=== PATIENT | female | born 1990 | race Two or more races ===

== ENCOUNTER 2016-09-30 17:43 | Emergency (ER) | payer MEDICARE, MEDICAID ==
[2016-09-30 17:50] VITALS: BP 119/84
[2016-09-30] MEDS ORDERED: NS 0.9% 1000 ML* 1,000 ML IV ONE (20:00)
[2016-09-30] MEDS ORDERED: Ondansetron INJ* 2 MG/ML VIAL IV ONE (20:00)
--- NOTE | 2016-09-30 20:24 | ED ---
Grant Roberts Karl, scribed for Dirk Colby MD on 09/30/16 at 1959 . GI/ HPI - HPI Summary HPI Summary: Pt is a 26 y/o female that presents to the ED c/o vomiting that began at 15:00 and has been constant since. Pt stated that she first vomited at 15:00 earlier today and has had 5 episodes of vomiting since with several episodes of hematemesis. Pt also reported a sore throat, nausea, and 8/10 epigastric abd pain that is worsened by vomiting. Pt stated that she last ate salad and chicken earlier this morning and her last episode of vomiting was 40 min ago while in the ED waiting room and there was blood in her vomit. Hx: ulcerative colitis. - History of Current Complaint Chief Complaint: EDGIBleed Time Seen by Provider: 09/30/16 19:55 Stated Complaint: VOMITING BLOOD/PAIN THROAT AND ABD Hx Obtained From: Patient Onset/Duration: Started Hours Ago, Atraumatic, Still Present Timing: Constant Severity: Moderate Current Severity: Moderate Pain Intensity: 8 - epigastric abd pain Location of Pain: Epigastric Associated Signs and Symptoms: Positive: Hematemesis, Nausea, Vomiting, Abdominal Pain Aggravating Factor(s): Nothing Alleviating Factor(s): Nothing - Allergy/Home Medications Allergies/Adverse Reactions: Allergies Allergy/AdvReac Type Severity Reaction Status Date / Time No Known Allergies Allergy Verified 09/30/16 17:50 PMH/Surg Hx/FS Hx/Imm Hx Endocrine/Hematology History: Denies: Hx Anticoagulant Therapy, Hx Blood Disorders, Hx Diabetes, Hx Thyroid Disease Cardiovascular History: Denies: Hx Hypertension, Hx Pacemaker/ICD Respiratory History: Reports: Hx Asthma - inhaler prn for exercise induced asthma Denies: Hx Chronic Bronchitis, Hx Chronic Obstructive Pulmonary Disease (COPD ), Hx Cystic Fibrosis, Hx Lung Cancer, Hx Pleural Effusion, Hx Pneumonia, Hx Pulmonary Edema, Hx Pulmonary Embolism, Hx Seasonal Allergies, Hx Sleep Apnea, Other Respiratory Problems/Disorders GI History: Reports: Hx Irritable Bowel, Other GI Disorders - colitis Denies: Hx Cirrhosis, Hx Crohn's Disease, Hx Diverticulosis, Hx Gall Bladder Disease, Hx Gastroesophageal Reflux Disease, Hx Gastrointestinal Bleed, Hx Hiatal Hernia, Hx Jaundice, Hx Obstructive Bowel, Hx Ileostomy, Hx Pyloric Stenosis, Hx Ulcer History: Reports: Hx Kidney Infection - Polycystic kidney, Hx Kidney Stones - Sep 2014 Denies: Hx Acute Renal Failure, Hx Benign Prostatic Hyperplasia, Hx Chronic Renal Failure, Hx Dialysis, Hx Renal Disease, Other Problems/Disorders Musculoskeletal History: Reports: Hx Back Problems Denies: Hx Arthritis, Hx Bursitis, Hx Congenital Bone Abnormalities, Hx Fibromyalgia, Hx Gout, Hx Orthopedic Injury, Hx Osteoporosis, Hx Scoliosis, Hx Tendonitis, Other Musculoskeletal History Sensory History: Denies: Hx Cataracts, Hx Contacts or Glasses, Hx Eye Injury, Hx Eye Prosthesis, Hx Glaucoma, Hx Legally Blind, Hx Macular Degeneration, Hx Vision Problem, Hx Deafness, Hx Hearing Aid, Hx Hearing Problem, Other Sensory Impairments Opthamlomology History: Denies: Hx Cataracts, Hx Contacts or Glasses, Hx Eye Injury, Hx Eye Prosthesis, Hx Glaucoma, Hx Legally Blind, Hx Macular Degeneration, Hx Vision Problem, Other Sensory Impairments Neurological History: Reports: Hx Headaches, Hx Migraine - 3 x week Denies: Hx Dementia, Hx Developmental Delay, Hx Seizures, Hx Spinal Cord Injury, Hx Transient Ischemic Attacks (TIA), Other Neuro Impairments/Disorders Psychiatric History: Reports: Hx Anxiety, Hx Depression, Hx Post Traumatic Stress Disorder, Hx Inpatient Treatment, Hx Community Mental Health Tx, Hx Suicide Attempt - overdose attempt at 12 Denies: Hx Attention Deficit Hyperactivity Disorder, Hx Eating Disorder, Hx Panic Disorder, Hx Schizophrenia, Hx Bipolar Disorder, Hx of Violent Episodes Against Others, Hx Substance Abuse, Other Psychiatric Issues/Disorders - Surgical History Surgery Procedure, Year, and Place: HISTORY OF ULCERATIVE COLITIS, IBS, KIDNEY STONES - Immunization History Date of Tetanus Vaccine: Unknown Date of Influenza Vaccine: None Infectious Disease History: No Infectious Disease History: Denies: Hx Clostridium Difficile, Hx Hepatitis, Hx Human Immunodeficiency Virus (HIV), Hx of Known/Suspected MRSA, Hx Shingles, Hx Tuberculosis, Traveled Outside the [place] in Last 30 Days - Family History Known Family History: Positive: Cardiac Disease, Diabetes - Social History Alcohol Use: None Substance Use Type: Reports: None Hx Tobacco Use: No Smoking Status (MU): Former Smoker Amount Used/How Often: 3/4 ppd Length of Time of Smoking/Using Tobacco: 6 YRS Review of Systems Constitutional: Negative Eyes: Negative Positive: Sore Throat Cardiovascular: Negative Respiratory: Negative Positive: Abdominal Pain, Vomiting - hematemesis, Nausea Genitourinary: Negative Musculoskeletal: Negative Skin: Negative Neurological: Negative Psychological: Normal All Other Systems Reviewed And Are Negative: Yes Physical Exam Triage Information Reviewed: Yes Vital Signs On Initial Exam: Initial Vitals Temp Pulse Resp BP Pulse Ox 98.9 F 92 16 119/84 99 09/30/16 17:46 09/30/16 17:46 09/30/16 17:46 09/30/16 17:46 09/30/16 17:46 Vital Signs Reviewed: Yes Appearance: Positive: Well-Appearing, No Pain Distress Skin: Positive: Warm Eyes: Positive: Normal ENT: Positive: Hearing grossly normal Neck: Positive: Supple Respiratory/Lung Sounds: Positive: Clear to Auscultation, Breath Sounds Present Cardiovascular: Positive: Normal Abdomen Description: Positive: Nontender, No Organomegaly, Soft Bowel Sounds: Positive: Present Musculoskeletal: Positive: Strength/ROM Intact Neurological: Positive: Sensory/Motor Intact, Alert, Oriented to Person Place, Time, Normal Gait Psychiatric: Positive: Normal Diagnostics - Vital Signs Vital Signs Temp Pulse Resp BP Pulse Ox 09/30/16 17:46 98.9 F 92 16 119/84 99 - Laboratory Pertinent Lab Values Are: WNL Result Diagrams: 09/30/16 20:45 09/30/16 20:35 Lab Statement: Any lab studies that have been ordered have been reviewed, and results considered in the medical decision making process. Re-Evaluation - Re-Evaluation First Eval Change: Improved GIGU Course/Dx - Diagnoses Provider Diagnoses: Nausea & vomiting, Abdominal pain Discharge - Discharge Plan Condition: Improved Disposition: HOME Patient Education Materials: Diet for Ulcers and Gastritis (ED), Acute Nausea and Vomiting (ED), Acute Abdominal Pain (ED) Referrals: Laith Mckinnon MD [Primary Care Provider] - Additional Instructions: Please follow up with your primary care provider. Return to the emergency department for changing or worsening symptoms. The documentation as recorded by the Grant julien Karl accurately reflects the service I personally performed and the decisions made by , Dirk Colby MD.
[2016-09-30 20:55] LABS: Hematocrit 39 % (35-47); Hemoglobin 12.2 g/dl (12.0-16.0); Mean Corpuscular HGB Conc 32 g/dl (31-36); Mean Corpuscular Hemoglobin 23 pg (27-31); Mean Platelet Volume 8 um3 (7.4-10.4); Red Blood Count 5.26 10^6/ul (4.0-5.4); Red Cell Distribution Width 15 % (10.5-15); White Blood Count 9.8 10^3/ul (3.5-10.8)
[2016-09-30 20:58] LABS: Comments Flag Yes
[2016-09-30 20:59] LABS: Mean Corpuscular Volume 73 fL (80-97)
[2016-09-30] MEDS ORDERED: Al Hydrox/Mg Hydrox/Simet LIQ* 30 ML UDC PO ONE (21:00)
[2016-09-30] MEDS ORDERED: Lidocaine 2% VISCOUS* 15 ML UDC PO ONE (21:00)
[2016-09-30 21:02] LABS: ALT 13 U/L (7-52); AST 19 U/L (13-39); Albumin 4.1 g/dL (3.2-5.2); Alkaline Phosphatase 76 U/L (34-104); Anion Gap 7 mmol/L (2-11); BUN/Creatinine Ratio 19.7 (8-20); Blood Urea Nitrogen 12 mg/dL (6-24); C Reactive Protein 8.84 mg/L (< 5.00); CO2 Carbon Dioxide 23 mmol/L (22-32); Calcium 9.2 mg/dL (8.6-10.3); Chloride 105 mmol/L (101-111); EGFR African American 150.2 (>60); EGFR Non-African American 116.8 (>60); Globulin 3.3 g/dL (2-4); Glucose 85 mg/dL (70-100); Lipase 12 U/L (11.0-82.0); Magnesium 1.9 mg/dL (1.9-2.7); Potassium 3.7 mmol/L (3.5-5.0); Sodium 135 mmol/L (133-145); Total Protein 7.4 g/dL (6.4-8.9)
[2016-09-30] MEDS ORDERED: Ondansetron ODT TAB* 4 MG PO ONE (22:19)
== END 2016-09-30 22:52 | disposition home or self-care (01) ==
LOC: ED 17:43
DX: R11.2 Nausea with vomiting, unspecified (principal); R10.9 Unspecified abdominal pain
CPT/HCPCS: 36415; 80053; 83605; 83690; 83735; 84702; 85025; 86140; 96374; 99282; A9270-GY; J2405

== ENCOUNTER 2016-12-30 11:39 | Emergency (ER) | payer MEDICARE, MEDICAID ==
[2016-12-30] MEDS ORDERED: NS 0.9% 1000 ML* 1,000 ML IV ONE (11:59)
[2016-12-30 12:20] LABS: Hematocrit 40 % (35-47); Hemoglobin 12.9 g/dl (12.0-16.0); Mean Corpuscular HGB Conc 32 g/dl (31-36); Mean Corpuscular Hemoglobin 23 pg (27-31); Mean Platelet Volume 9 um3 (7.4-10.4); Red Blood Count 5.54 10^6/ul (4.0-5.4); Red Cell Distribution Width 16 % (10.5-15); White Blood Count 9.4 10^3/ul (3.5-10.8)
[2016-12-30 12:22] LABS: Comments Flag Yes; Mean Corpuscular Volume 73 fL (80-97)
[2016-12-30 12:29] LABS: Urine Bacteria 1+ (Absent); Urine Bilirubin Negative (Negative); Urine Glucose Negative (Negative); Urine Nitrite Negative (Negative)
[2016-12-30 12:36] LABS: Albumin 4.4 g/dL (3.2-5.2); BUN/Creatinine Ratio 18.6 (8-20); C Reactive Protein 12.87 mg/L (< 5.00); Calcium 9.5 mg/dL (8.6-10.3); EGFR African American 128.1 (>60); EGFR Non-African American 99.6 (>60); Globulin 3.5 g/dL (2-4); Potassium 3.6 mmol/L (3.5-5.0); Total Bilirubin 0.4 mg/dL (0.2-1.0); Total Protein 7.9 g/dL (6.4-8.9)
--- NOTE | 2016-12-30 14:18 | RAD ---
Indication: Left adnexal pain. Real-time sonography of the pelvis was performed utilizing endovaginal technique. The uterus measures 9.4 x 4.5 x 4.8 cm. Endometrial echoes are unremarkable. No evidence of intrauterine gestational sac is noted. Endometrial echo measures 9 mm. Right ovary measures 4.1 x 2.1 x 1.7 cm. Left ovary measures 3.6 x 2.5 x 2.3 cm. Involuting cyst is noted in the left ovary measuring 2.1 x 1.3 x 2.0 cm. Doppler interrogation demonstrates flow in both ovaries. IMPRESSION: Involuting cyst left ovary measuring up to 2.1 cm.
[2016-12-30] MEDS ORDERED: Acetaminophen TAB* 325 MG PO ONE (14:26)
[2016-12-30] MEDS ORDERED: Ondansetron INJ* 2 MG/ML VIAL IV ONE (15:24)
[2016-12-30 15:36] VITALS: BP 112/79
--- NOTE | 2016-12-30 18:28 | ED ---
Grace Roberts Matthew, scribed for Damion Bowers MD on 12/30/16 at 1201 . Abdominal Pain/Female - HPI Summary HPI Summary: A 26 y/o female presents to the ED with constant left lower abdominal pain and back pain since 12/26/16. The patient has had the pain intermittent since 3 weeks ago. Associated symptoms include nausea and diarrhea. The patient denies vomiting, constipation, diarrhea. The patient has not had similar symptoms in the past. PMHX of ulcer colitis, depression, HTN, endometriosis, and IBS. Her GI physician is Dr. Edmond. FHx of CAD. Her LMP is 9 days late. - History of Current Complaint Chief Complaint: EDAbdPain Stated Complaint: LOWER LT ABD/FLANK PAIN/POSS PREG Time Seen by Provider: 12/30/16 11:47 Hx Last Menstrual Period: 9 days late Onset/Duration: Gradual Onset, Lasting Weeks, Still Present Timing: Constant Severity Initially: Moderate Severity Currently: Moderate Pain Intensity: 9 Pain Scale Used: 0-10 Numeric Location: Discrete At: LLQ Radiates: No Associated Signs and Symptoms: Positive: Back Pain, Nausea, Diarrhea, Other: - No dysuria. Negative: Constipation, Vomiting Allergies/Adverse Reactions: Allergies Allergy/AdvReac Type Severity Reaction Status Date / Time No Known Allergies Allergy Verified 09/30/16 17:50 PMH/Surg Hx/FS Hx/Imm Hx Endocrine/Hematology History: Denies: Hx Anticoagulant Therapy, Hx Blood Disorders, Hx Diabetes, Hx Thyroid Disease Cardiovascular History: Denies: Hx Hypertension, Hx Pacemaker/ICD Respiratory History: Reports: Hx Asthma - inhaler prn for exercise induced asthma Denies: Hx Chronic Bronchitis, Hx Chronic Obstructive Pulmonary Disease (COPD ), Hx Cystic Fibrosis, Hx Lung Cancer, Hx Pleural Effusion, Hx Pneumonia, Hx Pulmonary Edema, Hx Pulmonary Embolism, Hx Seasonal Allergies, Hx Sleep Apnea, Other Respiratory Problems/Disorders GI History: Reports: Hx Irritable Bowel, Other GI Disorders - colitis Denies: Hx Cirrhosis, Hx Crohn's Disease, Hx Diverticulosis, Hx Gall Bladder Disease, Hx Gastroesophageal Reflux Disease, Hx Gastrointestinal Bleed, Hx Hiatal Hernia, Hx Jaundice, Hx Obstructive Bowel, Hx Ileostomy, Hx Pyloric Stenosis, Hx Ulcer History: Reports: Hx Kidney Infection - Polycystic kidney, Hx Kidney Stones - Sep 2014 Denies: Hx Acute Renal Failure, Hx Benign Prostatic Hyperplasia, Hx Chronic Renal Failure, Hx Dialysis, Hx Renal Disease, Other Problems/Disorders Musculoskeletal History: Reports: Hx Back Problems Denies: Hx Arthritis, Hx Bursitis, Hx Congenital Bone Abnormalities, Hx Fibromyalgia, Hx Gout, Hx Orthopedic Injury, Hx Osteoporosis, Hx Scoliosis, Hx Tendonitis, Other Musculoskeletal History Sensory History: Denies: Hx Cataracts, Hx Contacts or Glasses, Hx Eye Injury, Hx Eye Prosthesis, Hx Glaucoma, Hx Legally Blind, Hx Macular Degeneration, Hx Vision Problem, Hx Deafness, Hx Hearing Aid, Hx Hearing Problem, Other Sensory Impairments Opthamlomology History: Denies: Hx Cataracts, Hx Contacts or Glasses, Hx Eye Injury, Hx Eye Prosthesis, Hx Glaucoma, Hx Legally Blind, Hx Macular Degeneration, Hx Vision Problem, Other Sensory Impairments Neurological History: Reports: Hx Headaches, Hx Migraine - 3 x week Denies: Hx Dementia, Hx Developmental Delay, Hx Seizures, Hx Spinal Cord Injury, Hx Transient Ischemic Attacks (TIA), Other Neuro Impairments/Disorders Psychiatric History: Reports: Hx Anxiety, Hx Depression, Hx Post Traumatic Stress Disorder, Hx Inpatient Treatment, Hx Community Mental Health Tx, Hx Suicide Attempt - overdose attempt at 12 Denies: Hx Attention Deficit Hyperactivity Disorder, Hx Eating Disorder, Hx Panic Disorder, Hx Schizophrenia, Hx Bipolar Disorder, Hx of Violent Episodes Against Others, Hx Substance Abuse, Other Psychiatric Issues/Disorders - Surgical History Surgery Procedure, Year, and Place: HISTORY OF ULCERATIVE COLITIS, IBS, KIDNEY STONES - Immunization History Date of Tetanus Vaccine: Unknown Date of Influenza Vaccine: None Infectious Disease History: Denies: Hx Clostridium Difficile, Hx Hepatitis, Hx Human Immunodeficiency Virus (HIV), Hx of Known/Suspected MRSA, Hx Shingles, Hx Tuberculosis, Traveled Outside the [place] in Last 30 Days - Family History Known Family History: Positive: Cardiac Disease, Diabetes - Social History Alcohol Use: None Substance Use Type: Reports: None Hx Tobacco Use: No Smoking Status (MU): Former Smoker Amount Used/How Often: 3/4 ppd Length of Time of Smoking/Using Tobacco: 6 YRS Review of Systems Constitutional: Negative Eyes: Negative ENT: Negative Cardiovascular: Negative Respiratory: Negative Positive: Abdominal Pain - LLQ, Diarrhea, Nausea. Negative: Vomiting Positive: Myalgia - Left sided back pain Skin: Negative Neurological: Negative Psychological: Normal All Other Systems Reviewed And Are Negative: Yes Physical Exam - Summary Physical Exam Summary: VITAL SIGNS: Reviewed. GENERAL: Patient is an obese female with mild distress secondary to pain in the LLQ. Patient is not in any acute respiratory distress. HEAD AND FACE: Normocephalic and atraumatic. EYES: PERRLA, EOMI x 2, No injected conjunctiva. EARS: Hearing grossly intact. Ear canals and tympanic membranes are WNL. MOUTH: Oropharynx within normal limits. NECK: Supple, trachea is midline, no adenopathy, no JVD. CHEST: Symmetric, no tenderness at palpation LUNGS: Clear to auscultation bilaterally. No wheezing or crackles. CVS: RRR,, S1 and S2 present, no murmurs or gallops appreciated. ABDOMEN: Soft, positive tender in the LLQ> No signs of distention. Positive bowel sounds. No rebound no guarding, and no masses palpated. No abdominal bruit or pulsations. EXTREMITIES: FROM in all major joints, no edema, no cyanosis or clubbing. NEURO: Alert and oriented x 3. No acute neurological deficits. Speech is normal. SKIN: Dry and warm Triage Information Reviewed: Yes Vital Signs On Initial Exam: Initial Vitals Temp Pulse Resp BP Pulse Ox 96.9 F 78 20 130/79 100 12/30/16 11:41 12/30/16 11:41 12/30/16 11:41 12/30/16 11:41 12/30/16 11:41 Vital Signs Reviewed: Yes - Kelly Coma Scale Coma Scale Total: 15 Diagnostics - Vital Signs Vital Signs Temp Pulse Resp BP Pulse Ox 12/30/16 11:41 96.9 F 78 20 130/79 100 - Laboratory Result Diagrams: 12/30/16 12:05 12/30/16 12:05 Lab Statement: Any lab studies that have been ordered have been reviewed, and results considered in the medical decision making process. - Ultrasound No standard instances Ultrasound Interpretation: Positive (See Comments) - IMPRESSION: Involuting cyst left ovary measuring up to 2.1 cm. Ultrasound Interpretation Completed By: Radiologist Abdominal Pain Fem Course/Dx - Course Course Of Treatment: A 26 y/o female presents to the ED with constant left lower abdominal pain and back pain since 12/26/16. The patient has had the pain intermittent since 3 weeks ago. Associated symptoms include nausea and diarrhea. The patient denies vomiting, constipation, diarrhea. The patient has not had similar symptoms in the past. PMHX of ulcer colitis, depression, HTN, endometriosis, and IBS. Her GI physician is Dr. Edmond. FHx of CAD. Her LMP is 9 days late. Blood work WNL except glucose of 101, C-reactive protein of 12. Urinalysis is contaminated and unable to tell if the patient has a UTI therefore we will send for urine cultures. Trans vaginal US shows involuting cyst left ovary measuring up to 2.1 cm. In the ED course, the patient was given IV fluids and Tylenol for the pain. The patient symptoms improved with Tylenol therefore I dont believe the patient is dealing with ulcer colitis or IBS flare. At this point, I cannot r/o an ectopic . I did discussed the case with Dr. Stewart from [facility] and recommends the patient follow-up at his office on Tuesday. I will be giving the patient a slip for a repeat beta HCG on Tuesday. I also did not perform an RH since the patient does not have vaginal bleeding or discharge. The patient will be discharge home to follow-up with Dr. Stewart. She was instructed to return to the ED if the symptoms worsen. If she develops increase in pain, vaginal bleeding, abdominal cramping, nausea and vomiting she should return to the ED immediately. Given an order for repear BHCG quantitative on Tuesday. - Diagnoses Differential Diagnosis: Positive: Constipation, Diverticulitis, Ovarian Cyst, Pancreatitis, Urinary Tract Infection Provider Diagnoses: Abdominal pain, - Provider Notifications Discussed Care Of Patient With: Dr. Stewart ([facility]) at 15:04 -- Notified of patient's history. Discharge - Discharge Plan Condition: Stable Disposition: HOME Meds/Orders/Equipment: BHCG Quantitative with Reflex [CHEM] Time Frame: 01/02/17, Facility: [facility], Location: LAB Patient Education Materials: Abdominal Pain in (ED) Referrals: Fady Stewart MD [Medical Doctor] - 01/03/17 Laith Mckinnon MD [Primary Care Provider] - Additional Instructions: Please follow-up with your primary care physician and Dr. Stewart on Tuesday () The documentation as recorded by the Grace julien Matthew accurately reflects the service I personally performed and the decisions made by me, Damion Bowers MD.
== END 2016-12-30 15:54 | disposition home or self-care (01) ==
LOC: ED 11:39
DX: O26.899 Other specified pregnancy related conditions, unspecified trimester (principal); R10.32 Left lower quadrant pain; O99.210 Obesity complicating pregnancy, unspecified trimester; Z87.891 Personal history of nicotine dependence; J45.990 Exercise induced bronchospasm; K58.9 Irritable bowel syndrome, unspecified
CPT/HCPCS: 36415; 76817; 80053; 81003; 81015; 82150; 83605; 83690; 84702; 85025; 86140; 87086; 96360; 96374; 99283; A9270-GY; J2405

== ENCOUNTER 2017-01-30 16:17 | Emergency (ER) | payer MEDICARE, MEDICAID ==
[2017-01-30] MEDS ORDERED: NS 0.9% 1000 ML* 2,000 ML IV ONE (17:10)
[2017-01-30] MEDS ORDERED: Ondansetron INJ* 2 MG/ML VIAL IV ONE (17:10)
[2017-01-30 17:51] LABS: Hematocrit 42 % (35-47); Hemoglobin 13.9 g/dl (12.0-16.0); Mean Corpuscular HGB Conc 33 g/dl (31-36); Mean Corpuscular Hemoglobin 24 pg (27-31); Mean Platelet Volume 9 um3 (7.4-10.4); Red Blood Count 5.71 10^6/ul (4.0-5.4); Red Cell Distribution Width 17 % (10.5-15); White Blood Count 10.7 10^3/ul (3.5-10.8)
[2017-01-30 17:54] LABS: Comments Flag Yes
[2017-01-30 17:55] LABS: Mean Corpuscular Volume 74 fL (80-97)
[2017-01-30 17:59] LABS: Urine Bacteria 1+ (Absent); Urine Bilirubin Negative (Negative); Urine Glucose Negative (Negative); Urine Nitrite Negative (Negative)
[2017-01-30 18:06] LABS: Albumin 4.3 g/dL (3.2-5.2); BUN/Creatinine Ratio 16.1 (8-20); Calcium 9.6 mg/dL (8.6-10.3); EGFR African American 165.8 (>60); EGFR Non-African American 128.9 (>60); Globulin 3.5 g/dL (2-4); Potassium 3.4 mmol/L (3.5-5.0); Total Bilirubin 0.6 mg/dL (0.2-1.0); Total Protein 7.8 g/dL (6.4-8.9)
[2017-01-30] MEDS ORDERED: Metoclopramide IV* 5 MG/ML 2 ML VIAL IV ONE (18:54)
[2017-01-30] MEDS ORDERED: HYDROmorphone* 1 MG/ML 1 ML SYR IV ONE (18:54)
[2017-01-30 20:30] VITALS: BP 106/61
--- NOTE | 2017-01-30 21:03 | ED ---
Chu Roberts Michael, scribed for Cornelio Hernandez MD on 01/30/17 at 1642 . - HPI Summary HPI Summary: 26 y/o female comes to the ED presenting with n/v that started a week and a half ago. The pt reports that the n/v has worsened within the last 4 days, and that she has a hx of hyperemesis during . Currently she is a gestational age of 8 weeks. Her LNMP was on 11/22/16, and her due date is . The pt saw Dr. Stewart 2 days ago and was started on vitamin B6 and Zofran, which has not alleviated the n/v. She also had a US at Dr. Stewart's office, and it was benign. The pt also c/o decreased appetite, increased blood in her stool from baseline, and sharp abd pain that started 2 weeks ago and has worsened since yesterday. The pain is located in the bilater LQ with worsening pain on the right side. She denies vaginal bleeding and dysuria. The pt PMHx is significant for Ulcerative colitis and IBS. - History of Current Complaint Chief Complaint: EDAbdPain Stated Complaint: 8 WKS PREG/ABD PAIN/BLOODY STOOL Time Seen by Provider: 01/30/17 16:41 Hx Obtained From: Patient, Medical Records Chief Complaint: Pain, Other: - n/v Onset/Duration: Started Weeks Ago, Still Present, Worse Since - 4 days ago Timing: Intermittent Severity: Mild Current Severity: Moderate Pain Intensity: 8 Location of Pain: Left Side - RLQ, Right Side - RLQ Character: Sharp Aggravating Factors: Nothing Alleviating Factors: Nothing Associated Signs and Symptoms: Positive: Appetite - decreased appetite, Nausea, Vomiting, Other: - blood in stool. abd pain. - Assessment SAB: 1 IEA: 2 - Additional Pertinent History Maternal Blood Type and Rh: A Positive - Allergies/Home Medications Allergies/Adverse Reactions: Allergies Allergy/AdvReac Type Severity Reaction Status Date / Time No Known Allergies Allergy Verified 09/30/16 17:50 PMH/Surg Hx/FS Hx/Imm Hx Endocrine/Hematology History: Denies: Hx Anticoagulant Therapy, Hx Blood Disorders, Hx Diabetes, Hx Thyroid Disease Cardiovascular History: Denies: Hx Hypertension, Hx Pacemaker/ICD Respiratory History: Reports: Hx Asthma - inhaler prn for exercise induced asthma Denies: Hx Chronic Bronchitis, Hx Chronic Obstructive Pulmonary Disease (COPD ), Hx Cystic Fibrosis, Hx Lung Cancer, Hx Pleural Effusion, Hx Pneumonia, Hx Pulmonary Edema, Hx Pulmonary Embolism, Hx Seasonal Allergies, Hx Sleep Apnea, Other Respiratory Problems/Disorders GI History: Reports: Hx Irritable Bowel, Other GI Disorders - colitis Denies: Hx Cirrhosis, Hx Crohn's Disease, Hx Diverticulosis, Hx Gall Bladder Disease, Hx Gastroesophageal Reflux Disease, Hx Gastrointestinal Bleed, Hx Hiatal Hernia, Hx Jaundice, Hx Obstructive Bowel, Hx Ileostomy, Hx Pyloric Stenosis, Hx Ulcer History: Reports: Hx Kidney Infection - Polycystic kidney, Hx Kidney Stones - Sep 2014 Denies: Hx Acute Renal Failure, Hx Benign Prostatic Hyperplasia, Hx Chronic Renal Failure, Hx Dialysis, Hx Renal Disease, Other Problems/Disorders Musculoskeletal History: Reports: Hx Back Problems Denies: Hx Arthritis, Hx Bursitis, Hx Congenital Bone Abnormalities, Hx Fibromyalgia, Hx Gout, Hx Orthopedic Injury, Hx Osteoporosis, Hx Scoliosis, Hx Tendonitis, Other Musculoskeletal History Sensory History: Denies: Hx Cataracts, Hx Contacts or Glasses, Hx Eye Injury, Hx Eye Prosthesis, Hx Glaucoma, Hx Legally Blind, Hx Macular Degeneration, Hx Vision Problem, Hx Deafness, Hx Hearing Aid, Hx Hearing Problem, Other Sensory Impairments Opthamlomology History: Denies: Hx Cataracts, Hx Contacts or Glasses, Hx Eye Injury, Hx Eye Prosthesis, Hx Glaucoma, Hx Legally Blind, Hx Macular Degeneration, Hx Vision Problem, Other Sensory Impairments Neurological History: Reports: Hx Headaches, Hx Migraine - 3 x week Denies: Hx Dementia, Hx Developmental Delay, Hx Seizures, Hx Spinal Cord Injury, Hx Transient Ischemic Attacks (TIA), Other Neuro Impairments/Disorders Psychiatric History: Reports: Hx Anxiety, Hx Depression, Hx Post Traumatic Stress Disorder, Hx Inpatient Treatment, Hx Community Mental Health Tx, Hx Suicide Attempt - overdose attempt at 12 Denies: Hx Attention Deficit Hyperactivity Disorder, Hx Eating Disorder, Hx Panic Disorder, Hx Schizophrenia, Hx Bipolar Disorder, Hx of Violent Episodes Against Others, Hx Substance Abuse, Other Psychiatric Issues/Disorders - Surgical History Surgery Procedure, Year, and Place: HISTORY OF ULCERATIVE COLITIS, IBS, KIDNEY STONES - Immunization History Date of Tetanus Vaccine: Unknown Date of Influenza Vaccine: None Infectious Disease History: No Infectious Disease History: Denies: Hx Clostridium Difficile, Hx Hepatitis, Hx Human Immunodeficiency Virus (HIV), Hx of Known/Suspected MRSA, Hx Shingles, Hx Tuberculosis, Traveled Outside the [place] in Last 30 Days - Family History Known Family History: Positive: Cardiac Disease, Diabetes - Social History Occupation: Unemployed Lives: Alone Alcohol Use: None Substance Use Type: Reports: None Hx Tobacco Use: No Smoking Status (MU): Former Smoker Amount Used/How Often: 3/4 ppd Length of Time of Smoking/Using Tobacco: 6 YRS Review of Systems Negative: Fever Positive: Abdominal Pain, Vomiting, Nausea, Other - blood in stool. decreased appetite. Positive: other - no vaginal bleeding. Negative: dysuria All Other Systems Reviewed And Are Negative: Yes Physical Exam - Physical Exam Triage Information Reviewed: Yes Vital Signs Reviewed: Yes Appearance: Positive: Well-Appearing, No Pain Distress, Obese Skin: Positive: Warm, Skin Color Reflects Adequate Perfusion, Dry Head/Face: Positive: Normal Head/Face Inspection Eyes: Positive: Normal ENT: Positive: Normal ENT inspection Neck: Positive: Supple, Nontender Respiratory/Lung Sounds: Positive: Clear to Auscultation, Breath Sounds Present Cardiovascular: Positive: RRR Abdomen Description: Positive: Nontender, Soft Bowel Sounds: Positive: Present Neurological: Positive: Normal Psychiatric: Positive: Affect/Mood Appropriate Diagnostics - Vital Signs Vital Signs Temp Pulse Resp BP Pulse Ox 01/30/17 16:30 97.3 F 91 15 116/88 100 01/30/17 16:26 97.2 F 92 16 116/88 100 - Laboratory Lab Results: Lab Results 01/30/17 01/30/17 01/30/17 Range/Units 17:40 17:40 17:40 WBC 10.7 (3.5-10.8) 10^3/ul RBC 5.71 H (4.0-5.4) 10^6/ul Hgb 13.9 (12.0-16.0) g/dl Hct 42 (35-47) % MCV 74 L (80-97) fL MCH 24 L (27-31) pg MCHC 33 (31-36) g/dl RDW 17 H (10.5-15) % Plt Count 252 (150-450) 10^3/ul MPV 9 (7.4-10.4) um3 Neut % (Auto) 71.9 (38-83) % Lymph % (Auto) 20.6 L (25-47) % [place] % (Auto) 6.8 (1-9) % Eos % (Auto) 0.4 (0-6) % Baso % (Auto) 0.3 (0-2) % Absolute Neuts (auto) 7.7 (1.5-7.7) 10^3/ul Absolute Lymphs (auto) 2.2 (1.0-4.8) 10^3/ul Absolute Monos (auto) 0.7 (0-0.8) 10^3/ul Absolute Eos (auto) 0 (0-0.6) 10^3/ul Absolute Basos (auto) 0 (0-0.2) 10^3/ul Absolute Nucleated RBC 0.01 10^3/ul Nucleated RBC % 0.1 Sodium (133-145) mmol/L Potassium (3.5-5.0) mmol/L Chloride (101-111) mmol/L Carbon Dioxide (22-32) mmol/L Anion Gap (2-11) mmol/L BUN (6-24) mg/dL Creatinine (0.51-0.95) mg/dL Est GFR ( Amer) (>60) Est GFR (Non-Af Amer) (>60) BUN/Creatinine Ratio (8-20) Glucose (70-100) mg/dL Lactic Acid 1.0 (0.5-2.0) mmol/L Calcium (8.6-10.3) mg/dL Total Bilirubin (0.2-1.0) mg/dL AST (13-39) U/L ALT (7-52) U/L Alkaline Phosphatase (34-104) U/L Total Protein (6.4-8.9) g/dL Albumin (3.2-5.2) g/dL Globulin (2-4) g/dL Albumin/Globulin Ratio (1-3) Urine Color Annabelle Urine Appearance Cloudy Urine pH 6.0 (5-9) Ur Specific [place] 1.024 (1.010-1.030) Urine Protein 1+(30 mg/dl) H (Negative) Urine Ketones 2+ H (Negative) Urine Blood Negative (Negative) Urine Nitrate Negative (Negative) Urine Bilirubin Negative (Negative) Urine Urobilinogen Positive H (Negative) Ur Leukocyte Esterase 1+ H (Negative) Urine WBC (Auto) 1+(6-10/hpf) H (Absent) Urine RBC (Auto) 1+(3-5/hpf) H (Absent) Ur Squamous Epith Cells Present H (Absent) Urine Bacteria 1+ H (Absent) Urine Glucose Negative (Negative) 01/30/17 Range/Units 17:40 WBC (3.5-10.8) 10^3/ul RBC (4.0-5.4) 10^6/ul Hgb (12.0-16.0) g/dl Hct (35-47) % MCV (80-97) fL MCH (27-31) pg MCHC (31-36) g/dl RDW (10.5-15) % Plt Count (150-450) 10^3/ul MPV (7.4-10.4) um3 Neut % (Auto) (38-83) % Lymph % (Auto) (25-47) % [place] % (Auto) (1-9) % Eos % (Auto) (0-6) % Baso % (Auto) (0-2) % Absolute Neuts (auto) (1.5-7.7) 10^3/ul Absolute Lymphs (auto) (1.0-4.8) 10^3/ul Absolute Monos (auto) (0-0.8) 10^3/ul Absolute Eos (auto) (0-0.6) 10^3/ul Absolute Basos (auto) (0-0.2) 10^3/ul Absolute Nucleated RBC 10^3/ul Nucleated RBC % Sodium 133 (133-145) mmol/L Potassium 3.4 L (3.5-5.0) mmol/L Chloride 101 (101-111) mmol/L Carbon Dioxide 22 (22-32) mmol/L Anion Gap 10 (2-11) mmol/L BUN 9 (6-24) mg/dL Creatinine 0.56 (0.51-0.95) mg/dL Est GFR ( Amer) 165.8 (>60) Est GFR (Non-Af Amer) 128.9 (>60) BUN/Creatinine Ratio 16.1 (8-20) Glucose 86 (70-100) mg/dL Lactic Acid (0.5-2.0) mmol/L Calcium 9.6 (8.6-10.3) mg/dL Total Bilirubin 0.60 (0.2-1.0) mg/dL AST 78 H (13-39) U/L ALT 76 H (7-52) U/L Alkaline Phosphatase 82 (34-104) U/L Total Protein 7.8 (6.4-8.9) g/dL Albumin 4.3 (3.2-5.2) g/dL Globulin 3.5 (2-4) g/dL Albumin/Globulin Ratio 1.2 (1-3) Urine Color Urine Appearance Urine pH (5-9) Ur Specific [place] (1.010-1.030) Urine Protein (Negative) Urine Ketones (Negative) Urine Blood (Negative) Urine Nitrate (Negative) Urine Bilirubin (Negative) Urine Urobilinogen (Negative) Ur Leukocyte Esterase (Negative) Urine WBC (Auto) (Absent) Urine RBC (Auto) (Absent) Ur Squamous Epith Cells (Absent) Urine Bacteria (Absent) Urine Glucose (Negative) Result Diagrams: 01/30/17 17:40 01/30/17 17:40 Lab Statement: Any lab studies that have been ordered have been reviewed, and results considered in the medical decision making process. Course/Dx - Course Course Of Treatment: Ms. Nelson presented with the C/O 'Hyperemesis' which she had with her first and a possible flair up of her ulderative colitis. She has been vomiting nonstop for 4 days and for the last 2 she has had abdominal pain that's constant but crampy. She passed a bloody BM today. Her labs were OK here aside from an unexplained mild increase in transaminases. She is too early for HELLP. I hydrated her here and treated her nausea and she felt better I discussed the situation with Dr. Andrea and he advised holding off on treating the UC at this time but he will follow her up. Her rectal exam was unremarkable. - Diagnoses Provider Diagnoses: Hyperemesis gravidarum, Ulcerative colitis Discharge - Discharge Plan Condition: Stable Disposition: HOME Patient Education Materials: Ulcerative Colitis (ED), Hyperemesis Gravidarum ( ED) Referrals: Jay Andrea MD [Medical Doctor] - Fady Stewart MD [Medical Doctor] - Additional Instructions: Please follow up with Dr. Andrea (Gastro) and Dr. Stewart (OBGYN) within the next 2 days. Also, keep taking medications as prescribed. The documentation as recorded by the Chu julien Michael accurately reflects the service I personally performed and the decisions made by me, Cornelio Hernandez MD.
== END 2017-01-30 20:30 | disposition home or self-care (01) ==
LOC: ED 16:17
DX: O21.0 Mild hyperemesis gravidarum (principal); R10.84 Generalized abdominal pain; Z87.891 Personal history of nicotine dependence; Z3A.08 8 weeks gestation of pregnancy; K51.90 Ulcerative colitis, unspecified, without complications
CPT/HCPCS: 36415; 80053; 81003; 81015; 83605; 85025; 87086; 96374; 96375; 99282; J1170; J2405

== ENCOUNTER 2017-03-02 09:43 | Emergency (ER) | payer MEDICARE, MEDICAID ==
[2017-03-02] MEDS ORDERED: Metoclopramide IV* 5 MG/ML 2 ML VIAL IV ONE ×2 (11:44→13:04)
[2017-03-02] MEDS ORDERED: Ondansetron INJ* 2 MG/ML VIAL IV ONE (11:48)
[2017-03-02] MEDS ORDERED: NS 0.9% 1000 ML* 2,000 ML IV ONE (11:59)
[2017-03-02 12:09] LABS: Hematocrit 38 % (35-47); Hemoglobin 12.4 g/dl (12.0-16.0); Mean Corpuscular HGB Conc 33 g/dl (31-36); Mean Corpuscular Hemoglobin 24 pg (27-31); Mean Platelet Volume 8 um3 (7.4-10.4); Red Blood Count 5.12 10^6/ul (4.0-5.4); Red Cell Distribution Width 17 % (10.5-15)
[2017-03-02 12:12] LABS: Comments Flag Yes; Mean Corpuscular Volume 74 fL (80-97)
[2017-03-02 12:24] LABS: Albumin 3.8 g/dL (3.2-5.2); BUN/Creatinine Ratio 16.3 (8-20); C Reactive Protein 34.31 mg/L (< 5.00); Calcium 9.1 mg/dL (8.6-10.3); EGFR African American 224.9 (>60); EGFR Non-African American 174.8 (>60); Globulin 3.5 g/dL (2-4); Potassium 3.5 mmol/L (3.5-5.0); Total Bilirubin 0.9 mg/dL (0.2-1.0); Total Protein 7.3 g/dL (6.4-8.9)
[2017-03-02] MEDS ORDERED: PROCHLORPERAZINE INJ 5 MG/ML 2 ML VIAL IV ONE (13:29)
[2017-03-02] MEDS ORDERED: Pantoprazole IV* 40 MG IV ONE (14:00)
[2017-03-02 14:21] LABS: Urine Bacteria Absent (Absent); Urine Bilirubin Negative (Negative); Urine Glucose Negative (Negative); Urine Nitrite Negative (Negative)
[2017-03-02 15:36] VITALS: BP 111/73
--- NOTE | 2017-03-02 18:25 | ED ---
Terence Roberts Aidan, scribed for Damino Bowers MD on 03/02/17 at 1316 . Complex/Multi-Sys Presentation - HPI Summary HPI Summary: 26 y/o female presents to the ED with a complaint of acute, frequent, moderate episodes of coffee ground emesis that began at 1200 yesterday. At 1500 yesterday , she got acute, constant, [id number] abdominal pain that has worsened since onset. She again had episodes of coffee ground emesis today beginning at 0200 this morning. Pt also mentions episodes of hematemesis today. Other associated symptoms include nausea, vaginal bleeding passing many clots, fever , chills, and episodes of diarrhea for the past 4 days. Pt is 13 weeks with her third . She has previously had 2 live births. Hx of colitis. - History Of Current Complaint Chief Complaint: EDAbdPain Time Seen by Provider: 03/02/17 11:51 Hx Obtained From: Patient Onset/Duration: Sudden Onset, Lasting Days, Still Present Timing: Intermittent, Lasting: Severity Currently: Moderate Severity Initially: Moderate Location: Pain At: - abdomen Character: Sharp Aggravating Factor(s): unknown Alleviating Factor(s): unknown Associated Signs And Symptoms: Positive: Nausea, Vomiting, Diarrhea, Abdominal Pain, Hematemesis, Fever, Other - vaginal bleeding, chills - Allergies/Home Medications Allergies/Adverse Reactions: Allergies Allergy/AdvReac Type Severity Reaction Status Date / Time No Known Allergies Allergy Verified 02/01/17 16:05 PMH/Surg Hx/FS Hx/Imm Hx Endocrine/Hematology History: Denies: Hx Anticoagulant Therapy, Hx Blood Disorders, Hx Diabetes, Hx Thyroid Disease Cardiovascular History: Denies: Hx Hypertension, Hx Pacemaker/ICD Respiratory History: Reports: Hx Asthma - inhaler prn for exercise induced asthma Denies: Hx Chronic Bronchitis, Hx Chronic Obstructive Pulmonary Disease (COPD ), Hx Cystic Fibrosis, Hx Lung Cancer, Hx Pleural Effusion, Hx Pneumonia, Hx Pulmonary Edema, Hx Pulmonary Embolism, Hx Seasonal Allergies, Hx Sleep Apnea, Other Respiratory Problems/Disorders GI History: Reports: Hx Irritable Bowel, Other GI Disorders - colitis Denies: Hx Cirrhosis, Hx Crohn's Disease, Hx Diverticulosis, Hx Gall Bladder Disease, Hx Gastroesophageal Reflux Disease, Hx Gastrointestinal Bleed, Hx Hiatal Hernia, Hx Jaundice, Hx Obstructive Bowel, Hx Ileostomy, Hx Pyloric Stenosis, Hx Ulcer History: Reports: Hx Kidney Infection - Polycystic kidney, Hx Kidney Stones - Sep 2014 Denies: Hx Acute Renal Failure, Hx Benign Prostatic Hyperplasia, Hx Chronic Renal Failure, Hx Dialysis, Hx Renal Disease, Other Problems/Disorders Musculoskeletal History: Reports: Hx Back Problems Denies: Hx Arthritis, Hx Bursitis, Hx Congenital Bone Abnormalities, Hx Fibromyalgia, Hx Gout, Hx Orthopedic Injury, Hx Osteoporosis, Hx Scoliosis, Hx Tendonitis, Other Musculoskeletal History Sensory History: Denies: Hx Cataracts, Hx Contacts or Glasses, Hx Eye Injury, Hx Eye Prosthesis, Hx Glaucoma, Hx Legally Blind, Hx Macular Degeneration, Hx Vision Problem, Hx Deafness, Hx Hearing Aid, Hx Hearing Problem, Other Sensory Impairments Opthamlomology History: Denies: Hx Cataracts, Hx Contacts or Glasses, Hx Eye Injury, Hx Eye Prosthesis, Hx Glaucoma, Hx Legally Blind, Hx Macular Degeneration, Hx Vision Problem, Other Sensory Impairments Neurological History: Reports: Hx Headaches, Hx Migraine - 3 x week Denies: Hx Dementia, Hx Developmental Delay, Hx Seizures, Hx Spinal Cord Injury, Hx Transient Ischemic Attacks (TIA), Other Neuro Impairments/Disorders Psychiatric History: Reports: Hx Anxiety, Hx Depression, Hx Post Traumatic Stress Disorder, Hx Inpatient Treatment, Hx Community Mental Health Tx, Hx Suicide Attempt - overdose attempt at 12 Denies: Hx Attention Deficit Hyperactivity Disorder, Hx Eating Disorder, Hx Panic Disorder, Hx Schizophrenia, Hx Bipolar Disorder, Hx of Violent Episodes Against Others, Hx Substance Abuse, Other Psychiatric Issues/Disorders - Surgical History Surgery Procedure, Year, and Place: HISTORY OF ULCERATIVE COLITIS, IBS, KIDNEY STONES - Immunization History Date of Tetanus Vaccine: Unknown Date of Influenza Vaccine: None Infectious Disease History: No Infectious Disease History: Denies: Hx Clostridium Difficile, Hx Hepatitis, Hx Human Immunodeficiency Virus (HIV), Hx of Known/Suspected MRSA, Hx Shingles, Hx Tuberculosis, Traveled Outside the [place] in Last 30 Days - Family History Known Family History: Positive: Cardiac Disease, Diabetes - Social History Occupation: Unemployed Lives: Alone Alcohol Use: None Substance Use Type: Reports: Marijuana Substance Use Comment - Amount & Last Used: stated smoked several weeks ago prior to knowledge of for nausea Hx Tobacco Use: No Smoking Status (MU): Former Smoker Amount Used/How Often: 3/4 ppd Length of Time of Smoking/Using Tobacco: 6 YRS Have You Smoked in the Last Year: No Review of Systems Positive: Fever, Chills. Negative: Fatigue, Skin Diaphoresis Eyes: Negative ENT: Negative Cardiovascular: Negative Respiratory: Negative Positive: Abdominal Pain, Vomiting, Diarrhea, Nausea, Other - hematamesis Genitourinary: Other - vaginal bleeding Negative: no symptoms reported, see HPI, burning, dysuria, discharge, frequency , flank pain, hematuria, incontinence, pain, urgency Musculoskeletal: Negative Skin: Negative Neurological: Negative Psychological: Normal All Other Systems Reviewed And Are Negative: Yes Physical Exam - Summary Physical Exam Summary: VITAL SIGNS: Reviewed. GENERAL: Patient is a well-developed, dehydrated FEMALE who is lying comfortable in the stretcher. Patient is not in any acute respiratory distress. HEAD AND FACE: No signs of trauma. No ecchymosis, hematomas or skull depressions. No sinus tenderness. EYES: PERRLA, EOMI x 2, No injected conjunctiva, no nystagmus. EARS: Hearing grossly intact. Ear canals and tympanic membranes are within normal limits. MOUTH: Oropharynx within normal limits. NECK: Supple, trachea is midline, no adenopathy, no JVD, no carotid bruit, no c- spine tenderness, neck with full ROM. CHEST: Symmetric, no tenderness at palpation LUNGS: Clear to auscultation bilaterally. No wheezing or crackles. CVS: Regular rate and rhythm, S1 and S2 present, no murmurs or gallops appreciated. ABDOMEN: Soft. Positive mild epigastric tenderness. No signs of distention. No rebound no guarding, and no masses palpated. Bowel sounds are normal. EXTREMITIES: FROM in all major joints, no edema, no cyanosis or clubbing. NEURO: Alert and oriented x 3. No acute neurological deficits. Speech is normal and follows commands. SKIN: Dry and warm No active vomiting. Triage Information Reviewed: Yes Vital Signs On Initial Exam: Initial Vitals Temp Pulse Resp BP Pulse Ox 98.7 F 90 17 120/76 98 03/02/17 10:30 03/02/17 10:30 03/02/17 10:30 03/02/17 10:30 03/02/17 10:30 Vital Signs Reviewed: Yes Diagnostics - Vital Signs Vital Signs Temp Pulse Resp BP Pulse Ox 03/02/17 10:34 98.7 F 84 17 120/76 98 03/02/17 10:30 98.7 F 90 17 120/76 98 - Laboratory Lab Results: Lab Results 03/02/17 03/02/17 03/02/17 Range/Units 11:55 11:55 11:55 WBC 10.0 (3.5-10.8) 10^3/ul RBC 5.12 (4.0-5.4) 10^6/ul Hgb 12.4 (12.0-16.0) g/dl Hct 38 (35-47) % MCV 74 L (80-97) fL MCH 24 L (27-31) pg MCHC 33 (31-36) g/dl RDW 17 H (10.5-15) % Plt Count 249 (150-450) 10^3/ul MPV 8 (7.4-10.4) um3 Neut % (Auto) 71.1 (38-83) % Lymph % (Auto) 20.7 L (25-47) % [place] % (Auto) 6.9 (1-9) % Eos % (Auto) 0.4 (0-6) % Baso % (Auto) 0.9 (0-2) % Absolute Neuts (auto) 7.1 (1.5-7.7) 10^3/ul Absolute Lymphs (auto) 2.1 (1.0-4.8) 10^3/ul Absolute Monos (auto) 0.7 (0-0.8) 10^3/ul Absolute Eos (auto) 0 (0-0.6) 10^3/ul Absolute Basos (auto) 0.1 (0-0.2) 10^3/ul Absolute Nucleated RBC 0 10^3/ul Nucleated RBC % 0 Sodium 135 (133-145) mmol/L Potassium 3.5 (3.5-5.0) mmol/L Chloride 103 (101-111) mmol/L Carbon Dioxide 22 (22-32) mmol/L Anion Gap 10 (2-11) mmol/L BUN 7 (6-24) mg/dL Creatinine 0.43 L (0.51-0.95) mg/dL Est GFR ( Amer) 224.9 (>60) Est GFR (Non-Af Amer) 174.8 (>60) BUN/Creatinine Ratio 16.3 (8-20) Glucose 90 (70-100) mg/dL Lactic Acid 1.1 (0.5-2.0) mmol/L Calcium 9.1 (8.6-10.3) mg/dL Total Bilirubin 0.90 (0.2-1.0) mg/dL AST 21 (13-39) U/L ALT 13 (7-52) U/L Alkaline Phosphatase 63 (34-104) U/L C-Reactive Protein 34.31 H (< 5.00) mg/L Total Protein 7.3 (6.4-8.9) g/dL Albumin 3.8 (3.2-5.2) g/dL Globulin 3.5 (2-4) g/dL Albumin/Globulin Ratio 1.1 (1-3) Beta HCG, Quant 74242.00 mIU/mL Result Diagrams: 03/02/17 11:55 03/02/17 11:55 Lab Statement: Any lab studies that have been ordered have been reviewed, and results considered in the medical decision making process. Complex Multi-Symp Course/Dx Assessment/Plan: 26 y/o female presents to the ED with a complaint of acute, frequent, moderate episodes of coffee ground emesis that began at 1200 yesterday. At 1500 yesterday, she got acute, constant, [id number] abdominal pain that has worsened since onset. She again had episodes of coffee ground emesis today beginning at 0200 this morning. Pt also mentions episodes of hematemesis today. Other associated symptoms include nausea, vaginal bleeding passing many clots, fever, chills, and episodes of diarrhea for the past 4 days. Pt is 13 weeks with her third . She has previously had 2 live births. Hx of colitis. In the ED course an IV access was obtained. Patient was placed in a surveillance monitor. Patient was started with 2 liters of IV fluids. Labs within normal limits except for CRP of 34.3. Urinalysis positive for urobilinogen, and contaminated. We will send for urine cultures. In the ED course she was given Zofran, Reglan and Compazine and her symptoms improved. I discussed the case with Dr. Knight (Patients OB) and he request to give protonix and discharge the patient home with f/u at this office tomorrow morning. I discussed the findings and plan with the patient as since she is feeling much better she will be discharged home with F/U of PMD and Dr. Lazo. I discussed all the findings and test results with the patient. Patient was instructed to return to the emergency room immediately if any of the symptoms return or worsens. They were explained the possibility of an early abdominal pathology which was not detected at this time despite the physical exam and testing. They understand and agree. Abdominal exam before discharge: Soft, NT. No signs of distention. BS present. No rebound no guarding , and no masses palpated. Patient is alert and oriented and hemodynamically stable. Patient is to follow up with primary care physician in the next 2 to 3 days. Patient agree and understands. - Diagnoses Differential Diagnoses/HQI/PQRI: Urinary Tract Infection, Other - Vomiting in , Hyperemesis gravidum Provider Diagnoses: Hyperemesis gravidarum - Physician Notifications Discussed Care Of Patient With: ainsley Time Discussed With Above Provider: 13:15 - Dr. Knight suggested giving the patient Protonix. The patient will be ready for discharge after. Discharge - Discharge Plan Condition: Stable Disposition: HOME Discharge Disposition Comment: Please follow up with your primary care provider within 3 days. Patient Education Materials: Hyperemesis Gravidarum (ED) Referrals: Mikey Reed, FREIGHT TALLIER [Primary Care Provider] - The documentation as recorded by the Terence julien Aidan accurately reflects the service I personally performed and the decisions made by me, Damion Bowers MD.
== END 2017-03-02 15:34 | disposition home or self-care (01) ==
LOC: ED 09:43
DX: O21.0 Mild hyperemesis gravidarum (principal); R19.7 Diarrhea, unspecified; R50.9 Fever, unspecified; Z87.891 Personal history of nicotine dependence; Z3A.13 13 weeks gestation of pregnancy
CPT/HCPCS: 36415; 80053; 81003; 81015; 83605; 84702; 85025; 86140; 87086; 96374; 96375; 99283; J0780; J2405

== ENCOUNTER 2017-05-27 14:40 | Emergency (ER) | payer MEDICARE, MEDICAID ==
[2017-05-27 15:41] VITALS: BP 105/71
[2017-05-27] MEDS ORDERED: Ondansetron INJ* 2 MG/ML VIAL IV ONE (16:38)
[2017-05-27 16:57] LABS: Hematocrit 33 % (35-47); Hemoglobin 10.7 g/dl (12.0-16.0); Mean Corpuscular HGB Conc 33 g/dl (31-36); Mean Corpuscular Hemoglobin 26 pg (27-31); Mean Corpuscular Volume 77 fL (80-97); Mean Platelet Volume 8 um3 (7.4-10.4); Red Cell Distribution Width 17 % (10.5-15); White Blood Count 7.9 10^3/ul (3.5-10.8)
[2017-05-27 17:12] LABS: Albumin 2.9 g/dL (3.2-5.2); BUN/Creatinine Ratio 14.3 (8-20); Calcium 8.3 mg/dL (8.6-10.3); EGFR African American 193.4 (>60); EGFR Non-African American 150.4 (>60); Globulin 3.1 g/dL (2-4); Potassium 3.8 mmol/L (3.5-5.0); Total Bilirubin 0.4 mg/dL (0.2-1.0)
--- NOTE | 2017-05-27 18:44 | ED ---
Rayne Roberts Alfonso, scribed for Cornelio Hernandez MD on 05/27/17 at 1610 . Abdominal Pain/Female - HPI Summary HPI Summary: This patient is a 26 year old F presenting to [facility] with a chief complaint of lower abdominal pain since 5 hours ago. The pain radiates to her vagina. The CC is described as cramping (started 4 hours ago). The patient rates the pain 7/10 in severity. Symptoms aggravated by nothing. Symptoms alleviated by nothing. Patient reports vomiting (hyperemesis), and nausea. Patient denies urinary symptoms, and vaginal bleeding. She states she is 26 weeks . - History of Current Complaint Chief Complaint: EDNauseaVomitDiarrh Stated Complaint: 26WKS PREG/ABD CRAMPING Time Seen by Provider: 05/27/17 15:31 Hx Obtained From: Patient Onset/Duration: Sudden Onset, Lasting Hours - 5, Still Present Timing: Constant Severity Initially: Moderate Severity Currently: Moderate Pain Intensity: 7 Pain Scale Used: 0-10 Numeric Location: Other - Lower Radiates: Yes Radiates to: Other - Vagina Character: Cramping Aggravating Factor(s): Nothing Alleviating Factor(s): Nothing Associated Signs and Symptoms: Positive: Other: - vomiting (hyperemesis), and nausea. Patient denies urinary symptoms, and vaginal bleeding. Allergies/Adverse Reactions: Allergies Allergy/AdvReac Type Severity Reaction Status Date / Time No Known Allergies Allergy Verified 05/27/17 15:41 PMH/Surg Hx/FS Hx/Imm Hx Endocrine/Hematology History: Denies: Hx Anticoagulant Therapy, Hx Blood Disorders, Hx Diabetes, Hx Thyroid Disease Cardiovascular History: Denies: Hx Hypertension, Hx Pacemaker/ICD Respiratory History: Reports: Hx Asthma - inhaler prn for exercise induced asthma Denies: Hx Chronic Bronchitis, Hx Chronic Obstructive Pulmonary Disease (COPD ), Hx Cystic Fibrosis, Hx Lung Cancer, Hx Pleural Effusion, Hx Pneumonia, Hx Pulmonary Edema, Hx Pulmonary Embolism, Hx Seasonal Allergies, Hx Sleep Apnea, Other Respiratory Problems/Disorders GI History: Reports: Hx Irritable Bowel, Other GI Disorders - colitis Denies: Hx Cirrhosis, Hx Crohn's Disease, Hx Diverticulosis, Hx Gall Bladder Disease, Hx Gastroesophageal Reflux Disease, Hx Gastrointestinal Bleed, Hx Hiatal Hernia, Hx Jaundice, Hx Obstructive Bowel, Hx Ileostomy, Hx Pyloric Stenosis, Hx Ulcer History: Reports: Hx Kidney Infection - Polycystic kidney, Hx Kidney Stones - Sep 2014 Denies: Hx Acute Renal Failure, Hx Benign Prostatic Hyperplasia, Hx Chronic Renal Failure, Hx Dialysis, Hx Renal Disease, Other Problems/Disorders Musculoskeletal History: Reports: Hx Back Problems Denies: Hx Arthritis, Hx Bursitis, Hx Congenital Bone Abnormalities, Hx Fibromyalgia, Hx Gout, Hx Orthopedic Injury, Hx Osteoporosis, Hx Scoliosis, Hx Tendonitis, Other Musculoskeletal History Sensory History: Denies: Hx Cataracts, Hx Contacts or Glasses, Hx Eye Injury, Hx Eye Prosthesis, Hx Glaucoma, Hx Legally Blind, Hx Macular Degeneration, Hx Vision Problem, Hx Deafness, Hx Hearing Aid, Hx Hearing Problem, Other Sensory Impairments Opthamlomology History: Denies: Hx Cataracts, Hx Contacts or Glasses, Hx Eye Injury, Hx Eye Prosthesis, Hx Glaucoma, Hx Legally Blind, Hx Macular Degeneration, Hx Vision Problem, Other Sensory Impairments Neurological History: Reports: Hx Headaches, Hx Migraine - 3 x week Denies: Hx Dementia, Hx Developmental Delay, Hx Seizures, Hx Spinal Cord Injury, Hx Transient Ischemic Attacks (TIA), Other Neuro Impairments/Disorders Psychiatric History: Reports: Hx Anxiety, Hx Depression, Hx Post Traumatic Stress Disorder, Hx Inpatient Treatment, Hx Community Mental Health Tx, Hx Suicide Attempt - overdose attempt at 12 Denies: Hx Attention Deficit Hyperactivity Disorder, Hx Eating Disorder, Hx Panic Disorder, Hx Schizophrenia, Hx Bipolar Disorder, Hx of Violent Episodes Against Others, Hx Substance Abuse, Other Psychiatric Issues/Disorders - Surgical History Surgery Procedure, Year, and Place: HISTORY OF ULCERATIVE COLITIS, IBS, KIDNEY STONES - Immunization History Date of Tetanus Vaccine: Unknown Date of Influenza Vaccine: None Infectious Disease History: No Infectious Disease History: Denies: Hx Clostridium Difficile, Hx Hepatitis, Hx Human Immunodeficiency Virus (HIV), Hx of Known/Suspected MRSA, Hx Shingles, Hx Tuberculosis, Traveled Outside the [place] in Last 30 Days - Family History Known Family History: Positive: Cardiac Disease, Diabetes - Social History Alcohol Use: None Substance Use Type: Reports: Marijuana Substance Use Comment - Amount & Last Used: stated smoked several weeks ago prior to knowledge of for nausea Hx Tobacco Use: No Smoking Status (MU): Former Smoker Amount Used/How Often: 3/4 ppd Length of Time of Smoking/Using Tobacco: 6 YRS Have You Smoked in the Last Year: No Review of Systems Positive: Abdominal Pain, Vomiting, Nausea Positive: no symptoms reported, other - Negative vaginal bleeding All Other Systems Reviewed And Are Negative: Yes Physical Exam Triage Information Reviewed: Yes Vital Signs On Initial Exam: Initial Vitals Temp Pulse Resp BP Pulse Ox 98.2 F 121 20 116/79 99 05/27/17 14:51 05/27/17 14:51 05/27/17 14:51 05/27/17 14:51 05/27/17 14:51 Vital Signs Reviewed: Yes Appearance: Positive: Well-Appearing, No Pain Distress Skin: Positive: Warm, Skin Color Reflects Adequate Perfusion, Dry Head/Face: Positive: Normal Head/Face Inspection Eyes: Positive: Normal ENT: Positive: Normal ENT inspection Neck: Positive: Supple, Nontender Respiratory/Lung Sounds: Positive: Clear to Auscultation, Breath Sounds Present Cardiovascular: Positive: RRR Abdomen Description: Positive: Nontender, Soft Bowel Sounds: Positive: Present Musculoskeletal: Positive: Normal Neurological: Positive: Normal, Sensory/Motor Intact, Alert, Oriented to Person Place, Time, CN Intact II-III Psychiatric: Positive: Affect/Mood Appropriate - [place] Coma Scale Coma Scale Total: 15 Diagnostics - Vital Signs Vital Signs Temp Pulse Resp BP Pulse Ox 05/27/17 15:34 98.0 F 89 16 105/71 98 05/27/17 14:51 98.2 F 121 20 116/79 99 - Laboratory Lab Results: Lab Results 05/27/17 05/27/17 Range/Units 16:48 16:48 WBC 7.9 (3.5-10.8) 10^3/ul RBC 4.20 (4.0-5.4) 10^6/ul Hgb 10.7 L (12.0-16.0) g/dl Hct 33 L (35-47) % MCV 77 L (80-97) fL MCH 26 L (27-31) pg MCHC 33 (31-36) g/dl RDW 17 H (10.5-15) % Plt Count 231 (150-450) 10^3/ul MPV 8 (7.4-10.4) um3 Neut % (Auto) 62.6 (38-83) % Lymph % (Auto) 28.6 (25-47) % [place] % (Auto) 7.8 (1-9) % Eos % (Auto) 0.4 (0-6) % Baso % (Auto) 0.6 (0-2) % Absolute Neuts (auto) 4.9 (1.5-7.7) 10^3/ul Absolute Lymphs (auto) 2.3 (1.0-4.8) 10^3/ul Absolute Monos (auto) 0.6 (0-0.8) 10^3/ul Absolute Eos (auto) 0 (0-0.6) 10^3/ul Absolute Basos (auto) 0 (0-0.2) 10^3/ul Absolute Nucleated RBC 0 10^3/ul Nucleated RBC % 0 Sodium 133 (133-145) mmol/L Potassium 3.8 (3.5-5.0) mmol/L Chloride 105 (101-111) mmol/L Carbon Dioxide 23 (22-32) mmol/L Anion Gap 5 (2-11) mmol/L BUN 7 (6-24) mg/dL Creatinine 0.49 L (0.51-0.95) mg/dL Est GFR ( Amer) 193.4 (>60) Est GFR (Non-Af Amer) 150.4 (>60) BUN/Creatinine Ratio 14.3 (8-20) Glucose 75 (70-100) mg/dL Calcium 8.3 L (8.6-10.3) mg/dL Total Bilirubin 0.40 (0.2-1.0) mg/dL AST 18 (13-39) U/L ALT 8 (7-52) U/L Alkaline Phosphatase 68 (34-104) U/L Total Protein 6.0 L (6.4-8.9) g/dL Albumin 2.9 L (3.2-5.2) g/dL Globulin 3.1 (2-4) g/dL Albumin/Globulin Ratio 0.9 L (1-3) Result Diagrams: 05/27/17 16:48 05/27/17 16:48 Lab Statement: Any lab studies that have been ordered have been reviewed, and results considered in the medical decision making process. Abdominal Pain Fem Course/Dx - Course Course Of Treatment: Ms. Nelson presented C/O nausea which she has had all of her but is worse today and she is feeling some cramping and is concerned that she might be going into labor. An IV was ordered to give her antiemetics while labs were checked with a concern for HELPP etc with abd pain and nausea in the third trimester. My intention was to send her up to L&D when I was sure she was medically stable. While waiting for a urine she became very angry and suddenly left. - Diagnoses Provider Diagnoses: Abdominal pain during in third trimester Discharge - Discharge Plan Condition: Stable Disposition: HOME Referrals: Laith Mckinnon MD [Primary Care Provider] - The documentation as recorded by the Rayne julien Alfonso accurately reflects the service I personally performed and the decisions made by me, Cornelio Hernandez MD.
== END 2017-05-27 18:31 | disposition home or self-care (01) ==
LOC: ED 14:40
DX: O26.892 Other specified pregnancy related conditions, second trimester (principal); R10.30 Lower abdominal pain, unspecified; Z3A.26 26 weeks gestation of pregnancy; Z87.891 Personal history of nicotine dependence
CPT/HCPCS: 36415; 80053; 85025; 99283

== ENCOUNTER 2017-07-13 08:46 | Emergency (ER) | payer MEDICARE, MEDICAID ==
[2017-07-13] MEDS ORDERED: Ondansetron INJ* 2 MG/ML VIAL IV ONE (09:02)
[2017-07-13] MEDS ORDERED: NS 0.9% 1000 ML* 1,000 ML IV ONE (09:02)
[2017-07-13 09:19] LABS: Hematocrit 30 % (35-47); Hemoglobin 10.1 g/dl (12.0-16.0); Mean Corpuscular HGB Conc 34 g/dl (31-36); Mean Corpuscular Hemoglobin 25 pg (27-31); Mean Corpuscular Volume 75 fL (80-97); Mean Platelet Volume 8 um3 (7.4-10.4); Red Blood Count 4.02 10^6/ul (4.0-5.4); Red Cell Distribution Width 16 % (10.5-15)
[2017-07-13 09:25] LABS: Urine Bacteria 1+ (Absent); Urine Bilirubin Negative (Negative); Urine Glucose Negative (Negative); Urine Nitrite Negative (Negative)
[2017-07-13 09:51] LABS: Albumin 2.9 g/dL (3.2-5.2); BUN/Creatinine Ratio 9.8 (8-20); C Reactive Protein 12.44 mg/L (< 5.00); Calcium 8.1 mg/dL (8.6-10.3); EGFR African American 183.4 (>60); EGFR Non-African American 142.6 (>60); Globulin 3.3 g/dL (2-4); Potassium 3.4 mmol/L (3.5-5.0); Total Bilirubin 0.2 mg/dL (0.2-1.0); Total Protein 6.2 g/dL (6.4-8.9)
--- NOTE | 2017-07-13 10:00 | RAD ---
HISTORY: Right upper quadrant pain COMPARISONS: August 14, 2016 TECHNIQUE: Multiple transverse and longitudinal ultrasound images were obtained of the right upper quadrant of the abdomen using grayscale and color Doppler imaging. FINDINGS: LIVER: The liver is normal in shape, size, contour, and echogenicity. There are no focal parenchymal masses. There is normal hepatopedal flow of the portal vein on Doppler imaging. BILIARY TREE: There is no intrahepatic or extrahepatic biliary dilatation. The common duct measures 0.3 cm. GALLBLADDER: The gallbladder is well-visualized. There is no cholelithiasis, gallbladder wall thickening or pericholecystic fluid. The technologist reports a questionable sonographic Martin sign. PANCREAS: The head of the pancreas is unremarkable. The tail of the pancreas is not well visualized secondary to overlying bowel gas. RIGHT KIDNEY: The right kidney is normal in shape, size, contour, and echogenicity. There is no hydronephrosis or nephrolithiasis. The right kidney measures 11 x 4.6 x 5.3 cm. cm. AORTA AND IVC: The aorta and IVC are unremarkable. FLUID: There are no pleural effusions. There is no free fluid within the hepatorenal recess. OTHER FINDINGS: None. IMPRESSION: QUESTIONABLE SONOGRAPHIC MARTIN SIGN. OTHERWISE UNREMARKABLE ULTRASOUND OF THE RIGHT UPPER QUADRANT.
[2017-07-13] MEDS ORDERED: Potassium Chlor TAB* 20 MEQ TAB.ER PO ONE (10:26)
[2017-07-13] MEDS ORDERED: Acetaminophen TAB* 325 MG PO ONE (10:27)
[2017-07-13 10:35] VITALS: BP 113/67
--- NOTE | 2017-07-14 16:22 | ED ---
Harsh Roberts Angela, scribed for Damion Bowers MD on 07/13/17 at 0908 . Abdominal Pain/Female - HPI Summary HPI Summary: This pt is a 27 y/o female, currently 32 weeks , presenting to [facility] c/o severe RUQ abd pain. Pt additionally c/o nausea and vomiting. She states having hyperemesis, vomiting 5 times a days. Pt states she is unable to keep much in due to her vomiting. Pt denies fever, chills. Her ObGyn is Dr. Stewart. Pt notes having "gallbladder issues" before. - History of Current Complaint Chief Complaint: EDAbdPain Stated Complaint: 32WKS PREG/RT ABD PAIN/SWELLING Time Seen by Provider: 07/13/17 08:56 Hx Obtained From: Patient Hx Last Menstrual Period: 9 days late ?: Yes - 32 weeks Onset/Duration: Lasting Hours, Still Present Timing: Hours Severity Currently: Severe Pain Intensity: 9 Pain Scale Used: 0-10 Numeric Location: Discrete At: RUQ Radiates: No Aggravating Factor(s): Nothing Alleviating Factor(s): Nothing Associated Signs and Symptoms: Positive: Nausea, Vomiting Allergies/Adverse Reactions: Allergies Allergy/AdvReac Type Severity Reaction Status Date / Time No Known Allergies Allergy Verified 07/13/17 08:51 PMH/Surg Hx/FS Hx/Imm Hx Endocrine/Hematology History: Denies: Hx Anticoagulant Therapy, Hx Blood Disorders, Hx Diabetes, Hx Thyroid Disease Cardiovascular History: Denies: Hx Hypertension, Hx Pacemaker/ICD Respiratory History: Reports: Hx Asthma - inhaler prn for exercise induced asthma Denies: Hx Chronic Bronchitis, Hx Chronic Obstructive Pulmonary Disease (COPD ), Hx Cystic Fibrosis, Hx Lung Cancer, Hx Pleural Effusion, Hx Pneumonia, Hx Pulmonary Edema, Hx Pulmonary Embolism, Hx Seasonal Allergies, Hx Sleep Apnea, Other Respiratory Problems/Disorders GI History: Reports: Hx Irritable Bowel, Other GI Disorders - colitis Denies: Hx Cirrhosis, Hx Crohn's Disease, Hx Diverticulosis, Hx Gall Bladder Disease, Hx Gastroesophageal Reflux Disease, Hx Gastrointestinal Bleed, Hx Hiatal Hernia, Hx Jaundice, Hx Obstructive Bowel, Hx Ileostomy, Hx Pyloric Stenosis, Hx Ulcer History: Reports: Hx Kidney Infection - Polycystic kidney, Hx Kidney Stones - Sep 2014 Denies: Hx Acute Renal Failure, Hx Benign Prostatic Hyperplasia, Hx Chronic Renal Failure, Hx Dialysis, Hx Renal Disease, Other Problems/Disorders Musculoskeletal History: Reports: Hx Back Problems Denies: Hx Arthritis, Hx Bursitis, Hx Congenital Bone Abnormalities, Hx Fibromyalgia, Hx Gout, Hx Orthopedic Injury, Hx Osteoporosis, Hx Scoliosis, Hx Tendonitis, Other Musculoskeletal History Sensory History: Denies: Hx Cataracts, Hx Contacts or Glasses, Hx Eye Injury, Hx Eye Prosthesis, Hx Glaucoma, Hx Legally Blind, Hx Macular Degeneration, Hx Vision Problem, Hx Deafness, Hx Hearing Aid, Hx Hearing Problem, Other Sensory Impairments Opthamlomology History: Denies: Hx Cataracts, Hx Contacts or Glasses, Hx Eye Injury, Hx Eye Prosthesis, Hx Glaucoma, Hx Legally Blind, Hx Macular Degeneration, Hx Vision Problem, Other Sensory Impairments Neurological History: Reports: Hx Headaches, Hx Migraine - 3 x week Denies: Hx Dementia, Hx Developmental Delay, Hx Seizures, Hx Spinal Cord Injury, Hx Transient Ischemic Attacks (TIA), Other Neuro Impairments/Disorders Psychiatric History: Reports: Hx Anxiety, Hx Depression, Hx Post Traumatic Stress Disorder, Hx Inpatient Treatment, Hx Community Mental Health Tx, Hx Suicide Attempt - overdose attempt at 12 Denies: Hx Attention Deficit Hyperactivity Disorder, Hx Eating Disorder, Hx Panic Disorder, Hx Schizophrenia, Hx Bipolar Disorder, Hx of Violent Episodes Against Others, Hx Substance Abuse, Other Psychiatric Issues/Disorders - Surgical History Surgery Procedure, Year, and Place: HISTORY OF ULCERATIVE COLITIS, IBS, KIDNEY STONES - Immunization History Date of Tetanus Vaccine: Unknown Date of Influenza Vaccine: None Infectious Disease History: No Infectious Disease History: Denies: Hx Clostridium Difficile, Hx Hepatitis, Hx Human Immunodeficiency Virus (HIV), Hx of Known/Suspected MRSA, Hx Shingles, Hx Tuberculosis, Traveled Outside the [place] in Last 30 Days - Family History Known Family History: Positive: Cardiac Disease, Diabetes - Social History Alcohol Use: None Substance Use Type: Reports: Marijuana Substance Use Comment - Amount & Last Used: stated smoked several weeks ago prior to knowledge of for nausea Hx Tobacco Use: No Smoking Status (MU): Former Smoker Amount Used/How Often: 3/4 ppd Length of Time of Smoking/Using Tobacco: 6 YRS Have You Smoked in the Last Year: No Review of Systems Negative: Fever, Chills Eyes: Negative ENT: Negative Cardiovascular: Negative Positive: Abdominal Pain, Vomiting, Nausea All Other Systems Reviewed And Are Negative: Yes Physical Exam - Summary Physical Exam Summary: VITAL SIGNS: Reviewed. GENERAL: Patient is a well-developed and nourished female who is lying comfortable in the stretcher. Patient is not in any acute respiratory distress. Pt is a little bit dehydrated. HEAD AND FACE: Normocephalic and atraumatic. EYES: PERRLA, EOMI x 2, No injected conjunctiva. EARS: Hearing grossly intact. Ear canals and tympanic membranes are WNL. MOUTH: Oropharynx within normal limits. NECK: Supple, trachea is midline, no adenopathy, no JVD. CHEST: Symmetric, no tenderness at palpation LUNGS: Clear to auscultation bilaterally. No wheezing or crackles. CVS: RRR, S1 and S2 present, no murmurs or gallops appreciated. ABDOMEN: Soft. Pt is gravid. There is RUQ tenderness. No signs of distention. Positive bowel sounds. No rebound no guarding, and no masses palpated. No abdominal bruit or pulsations. EXTREMITIES: FROM in all major joints, no edema, no cyanosis or clubbing. NEURO: Alert and oriented x 3. No acute neurological deficits. Speech is normal. SKIN: Dry and warm Triage Information Reviewed: Yes Vital Signs On Initial Exam: Initial Vitals Temp Pulse Resp BP Pulse Ox 97.0 F 107 20 117/81 99 07/13/17 08:49 07/13/17 08:49 07/13/17 08:49 07/13/17 08:49 07/13/17 08:49 Vital Signs Reviewed: Yes Diagnostics - Vital Signs Vital Signs Temp Pulse Resp BP Pulse Ox 07/13/17 08:49 97.0 F 107 20 117/81 99 - Laboratory Lab Results: Lab Results 07/13/17 07/13/17 07/13/17 Range/Units 09:09 09:09 09:09 WBC 7.0 (3.5-10.8) 10^3/ul RBC 4.02 (4.0-5.4) 10^6/ul Hgb 10.1 L (12.0-16.0) g/dl Hct 30 L (35-47) % MCV 75 L (80-97) fL MCH 25 L (27-31) pg MCHC 34 (31-36) g/dl RDW 16 H (10.5-15) % Plt Count 234 (150-450) 10^3/ul MPV 8 (7.4-10.4) um3 Neut % (Auto) 62.6 (38-83) % Lymph % (Auto) 28.8 (25-47) % [place] % (Auto) 7.1 (1-9) % Eos % (Auto) 1.0 (0-6) % Baso % (Auto) 0.5 (0-2) % Absolute Neuts (auto) 4.4 (1.5-7.7) 10^3/ul Absolute Lymphs (auto) 2.0 (1.0-4.8) 10^3/ul Absolute Monos (auto) 0.5 (0-0.8) 10^3/ul Absolute Eos (auto) 0.1 (0-0.6) 10^3/ul Absolute Basos (auto) 0 (0-0.2) 10^3/ul Absolute Nucleated RBC 0 10^3/ul Nucleated RBC % 0 Sodium 134 (133-145) mmol/L Potassium 3.4 L (3.5-5.0) mmol/L Chloride 107 (101-111) mmol/L Carbon Dioxide 19 L (22-32) mmol/L Anion Gap 8 (2-11) mmol/L BUN 5 L (6-24) mg/dL Creatinine 0.51 (0.51-0.95) mg/dL Est GFR ( Amer) 183.4 (>60) Est GFR (Non-Af Amer) 142.6 (>60) BUN/Creatinine Ratio 9.8 (8-20) Glucose 96 (70-100) mg/dL Calcium 8.1 L (8.6-10.3) mg/dL Total Bilirubin 0.20 (0.2-1.0) mg/dL AST 16 (13-39) U/L ALT 7 (7-52) U/L Alkaline Phosphatase 87 (34-104) U/L C-Reactive Protein 12.44 H (< 5.00) mg/L Total Protein 6.2 L (6.4-8.9) g/dL Albumin 2.9 L (3.2-5.2) g/dL Globulin 3.3 (2-4) g/dL Albumin/Globulin Ratio 0.9 L (1-3) Urine Color Colorless Urine Appearance Clear Urine pH 7.0 (5-9) Ur Specific [place] 1.002 L (1.010-1.030) Urine Protein Negative (Negative) Urine Ketones Negative (Negative) Urine Blood Negative (Negative) Urine Nitrate Negative (Negative) Urine Bilirubin Negative (Negative) Urine Urobilinogen Negative (Negative) Ur Leukocyte Esterase Trace H (Negative) Urine WBC (Auto) Trace(0-5/hpf) (Absent) Urine RBC (Auto) Trace(0-2/hpf) (Absent) Ur Squamous Epith Cells Present H (Absent) Urine Bacteria 1+ H (Absent) Urine Glucose Negative (Negative) Result Diagrams: 07/13/17 09:09 07/13/17 09:09 Lab Statement: Any lab studies that have been ordered have been reviewed, and results considered in the medical decision making process. - Ultrasound No standard instances Ultrasound Interpretation: No Acute Changes - Abdomen US IMPRESSION: Questionable sonographic middleton sign. Otherwise unremarkable ultrasound of the right upper quadrant. ED physician has reviewed this radiology report and agrees. Ultrasound Interpretation Completed By: Radiologist Abdominal Pain Fem Course/Dx - Course Course Of Treatment: This pt is a 27 y/o female, currently 32 weeks , presenting to [facility] c/o severe RUQ abd pain. Pt additionally c/o nausea and vomiting. She states having hyperemesis, vomiting 5 times a days. Pt states she is unable to keep much in due to her vomiting. Pt denies fever, chills. Her ObGyn is Dr. Stewart. Pt notes having "gallbladder issues" before. Test results without any significant abnormalities except for slight anemia, potassium of 3.4, for which she was given potassium chloride. Urinalysis is negative for UTI. RUQ US shows questionable sonographic middleton sign. Otherwise unremarkable ultrasound of the right upper quadrant. In the ED she was hydrated and given Zofran for nausea and vomiting. Her symptoms improved. Pt is eating and drinking without nausea and vomiting. She will be discharged with follow up from her OBGYN. Pt is hemodynamically stable, alert and oriented x3. - Diagnoses Differential Diagnosis: Positive: Constipation, , Urinary Tract Infection Provider Diagnoses: Nausea and vomiting Discharge - Discharge Plan Condition: Stable Disposition: HOME Patient Education Materials: Nausea and Vomiting in (ED) Referrals: Laith Mckinnon MD [Primary Care Provider] - Additional Instructions: Please follow up with your primary care provider. The documentation as recorded by the scribe, House,Niru accurately reflects the service I personally performed and the decisions made by me, Damion Bowers MD.
== END 2017-07-13 10:43 | disposition home or self-care (01) ==
LOC: ED 08:46
DX: R11.2 Nausea with vomiting, unspecified (principal); R10.11 Right upper quadrant pain; Z87.891 Personal history of nicotine dependence
CPT/HCPCS: 36415; 76705; 80053; 81003; 81015; 85025; 86140; 87086; 96374; 99282; A9270-GY; J2405

== ENCOUNTER 2017-08-14 15:28 | Emergency (ER) | payer MEDICARE, MEDICAID ==
[2017-08-14 16:45] VITALS: BP 109/87
--- NOTE | 2017-08-14 16:54 | ED ---
Hypertension - HPI Summary HPI Summary: Patient is an otherwise healthy 37week old 27yo F with a history of pre -eclampsia with her first child comes to the ED with CC of hypertension reading at home. She notes to generally low BP throughout this with readings usually around 110/65-120/80. However on taking her BP today, her BP read 125/ 93 at the highest. However, most readings remained below 130/80. She was concerned d/t the diastolic elevated. She notes to feeling ill last week with a sinus cold, but that has since passed. She was concerned d/t her history of pre-eclampsia in the final week of her first . She denies any problems with the second or thus far during her current . Denies any other symptoms including urinary symptoms, SANCHEZ, neck pain or abdominal pain. Hx of hyperemesis which is at baseline. Denies extra stress or palpitations. Denies chest pain or SOB. She contineus to be eating and drinking OK. She is accompanied by her partner. - History of Current Complaint Chief Complaint: EDHypertension Stated Complaint: 37 WKS PREG BP OFF Time Seen by Provider: 08/14/17 16:09 Hx Obtained From: Patient Hx Last Menstrual Period: 8 months ago - Onset/Duration: Started Minutes Ago Timing: Constant Aggravating Factor(s): Nothing Alleviating Factor(s): Nothing Associated Signs & Symptoms: Negative Related Hx: Diagnosed As: - pre-eclampsia - Risk Factors Cardiac Risk Factors: Hypertension - Allergies/Home Medications Allergies/Adverse Reactions: Allergies Allergy/AdvReac Type Severity Reaction Status Date / Time No Known Allergies Allergy Verified 08/14/17 15:42 PMH/Surg Hx/FS Hx/Imm Hx Previously Healthy: Yes Endocrine/Hematology History: Denies: Hx Anticoagulant Therapy, Hx Blood Disorders, Hx Diabetes, Hx Thyroid Disease Cardiovascular History: Denies: Hx Hypertension, Hx Pacemaker/ICD Respiratory History: Reports: Hx Asthma - inhaler prn for exercise induced asthma Denies: Hx Chronic Bronchitis, Hx Chronic Obstructive Pulmonary Disease (COPD ), Hx Cystic Fibrosis, Hx Lung Cancer, Hx Pleural Effusion, Hx Pneumonia, Hx Pulmonary Edema, Hx Pulmonary Embolism, Hx Seasonal Allergies, Hx Sleep Apnea, Other Respiratory Problems/Disorders GI History: Reports: Hx Irritable Bowel, Other GI Disorders - colitis Denies: Hx Cirrhosis, Hx Crohn's Disease, Hx Diverticulosis, Hx Gall Bladder Disease, Hx Gastroesophageal Reflux Disease, Hx Gastrointestinal Bleed, Hx Hiatal Hernia, Hx Jaundice, Hx Obstructive Bowel, Hx Ileostomy, Hx Pyloric Stenosis, Hx Ulcer History: Reports: Hx Kidney Infection - Polycystic kidney, Hx Kidney Stones - Sep 2014 Denies: Hx Acute Renal Failure, Hx Benign Prostatic Hyperplasia, Hx Chronic Renal Failure, Hx Dialysis, Hx Renal Disease, Other Problems/Disorders Musculoskeletal History: Reports: Hx Back Problems Denies: Hx Arthritis, Hx Bursitis, Hx Congenital Bone Abnormalities, Hx Fibromyalgia, Hx Gout, Hx Orthopedic Injury, Hx Osteoporosis, Hx Scoliosis, Hx Tendonitis, Other Musculoskeletal History Sensory History: Denies: Hx Cataracts, Hx Contacts or Glasses, Hx Eye Injury, Hx Eye Prosthesis, Hx Glaucoma, Hx Legally Blind, Hx Macular Degeneration, Hx Vision Problem, Hx Deafness, Hx Hearing Aid, Hx Hearing Problem, Other Sensory Impairments Opthamlomology History: Denies: Hx Cataracts, Hx Contacts or Glasses, Hx Eye Injury, Hx Eye Prosthesis, Hx Glaucoma, Hx Legally Blind, Hx Macular Degeneration, Hx Vision Problem, Other Sensory Impairments Neurological History: Reports: Hx Headaches, Hx Migraine - 3 x week Denies: Hx Dementia, Hx Developmental Delay, Hx Seizures, Hx Spinal Cord Injury, Hx Transient Ischemic Attacks (TIA), Other Neuro Impairments/Disorders Psychiatric History: Reports: Hx Anxiety, Hx Depression, Hx Post Traumatic Stress Disorder, Hx Inpatient Treatment, Hx Community Mental Health Tx, Hx Suicide Attempt - overdose attempt at 12 Denies: Hx Attention Deficit Hyperactivity Disorder, Hx Eating Disorder, Hx Panic Disorder, Hx Schizophrenia, Hx Bipolar Disorder, Hx of Violent Episodes Against Others, Hx Substance Abuse, Other Psychiatric Issues/Disorders - Surgical History Surgery Procedure, Year, and Place: HISTORY OF ULCERATIVE COLITIS, IBS, KIDNEY STONES - Immunization History Date of Tetanus Vaccine: Unknown Date of Influenza Vaccine: None Hx Pertussis Vaccination: No Immunizations Up to Date: Unable to Obtain/Confirm Infectious Disease History: No Infectious Disease History: Denies: Hx Clostridium Difficile, Hx Hepatitis, Hx Human Immunodeficiency Virus (HIV), Hx of Known/Suspected MRSA, Hx Shingles, Hx Tuberculosis, Traveled Outside the [place] in Last 30 Days - Family History Known Family History: Positive: Cardiac Disease, Diabetes - Social History Occupation: Unemployed Lives: With Family Alcohol Use: None Hx Substance Use: Yes Substance Use Type: Reports: Marijuana Substance Use Comment - Amount & Last Used: stated smoked several weeks ago prior to knowledge of for nausea Hx Tobacco Use: No Smoking Status (MU): Former Smoker Amount Used/How Often: 3/4 ppd Length of Time of Smoking/Using Tobacco: 6 YRS Have You Smoked in the Last Year: No Review of Systems Constitutional: Negative Negative: Fever, Chills, Fatigue Eyes: Negative Cardiovascular: Negative Respiratory: Negative Gastrointestinal: Negative Genitourinary: Negative Positive: no symptoms reported, see HPI Musculoskeletal: Negative Skin: Negative Neurological: Negative Psychological: Normal All Other Systems Reviewed And Are Negative: Yes Physical Exam Triage Information Reviewed: Yes Vital Signs On Initial Exam: Initial Vitals Temp Pulse Resp BP Pulse Ox 96.9 F 112 16 129/85 98 08/14/17 15:42 08/14/17 15:42 08/14/17 15:42 08/14/17 15:42 08/14/17 15:42 Vital Signs Reviewed: Yes Appearance: Positive: Well-Appearing, Well-Nourished Skin: Positive: Warm, Skin Color Reflects Adequate Perfusion Head/Face: Positive: Normal Head/Face Inspection Eyes: Positive: EOMI, CHANDRA, Conjunctiva Clear Neck: Positive: Supple, No Lymphadenopathy Respiratory/Lung Sounds: Positive: Clear to Auscultation, Breath Sounds Present Cardiovascular: Positive: Normal, RRR, Pulses are Symmetrical in both Upper and Lower Extremities Musculoskeletal: Positive: Normal, Strength/ROM Intact Neurological: Positive: Speech Normal Psychiatric: Positive: Normal, Affect/Mood Appropriate - [place] Coma Scale Best Eye Response: 4 - Spontaneous Best Motor Response: 6 - Obeys Commands Best Verbal Response: 5 - Oriented Coma Scale Total: 15 Diagnostics - Vital Signs Vital Signs Temp Pulse Resp BP Pulse Ox 08/14/17 16:30 108 109/87 97 08/14/17 16:16 90 96 08/14/17 16:14 118/85 08/14/17 15:42 96.9 F 112 16 129/85 98 - Laboratory Lab Statement: Any lab studies that have been ordered have been reviewed, and results considered in the medical decision making process. Hypertension Course/Dx - Course Course Of Treatment: During the course of treatment, patients BP was checked 5 x with highest reading at 129/85 and lowest at 118/85. Discussed alarming readings and associated symptoms with pre-eclampsia. She admits to not knowing a good BP reading, and did not know if this was high. She did not call her OBGYN prior to coming to the ED. Denies other symptoms. Patient has no abdominal pain, SANCHEZ, palpitations, SOB or chest pain for cause for concern for related HTN or HEELP syndrome. Discussed findings with patient and d/ t her history, I have advised she return for any diastolic reading above 100 for more than 3 x over a 2 hour period. She does not meet criteria for chronic or acute HTN, HEELP, gestational HTN or pre-eclampsia. I have discussed this with patient who agrees to return for any elevated readings if today. Tomorrow, she will call OBGYN. Patient does not meet criteria for preeclampsia based on the findings: According to [employer]: Systolic blood pressure =160 mmHg or diastolic blood pressure =110 mmHg on two occasions. She continues to take her BP 4x daily. - Diagnoses Differential Diagnosis/HQI PQRI: Eclampsia, Hypertension, Hypertensive Crisis, Hypertensive Urgency, Preeclampsia Provider Diagnoses: Normal blood pressure Discharge - Discharge Plan Condition: Stable Disposition: HOME Patient Education Materials: Preeclampsia (ED) Referrals: Laith Mckinnon MD [Primary Care Provider] - Additional Instructions: I have given you information on preeclampsia, however I am not diagnosing you with this Please return if you have any high BP readings. Specifically if you have anything which is consistently (3 x spanned over a course of 1-2 hours) BP readings of Top number: 180 or above Bottom number: 100 or above Please call your OBGYN tomorrow and let them know you were seen here in the ED. Since you are not having any other symptoms, we will defer any blood work at this time Your EKG (heart monitor) was normal Keep a close eye on your BP readings due to your history of preeclampsia
== END 2017-08-14 16:51 | disposition home or self-care (01) ==
LOC: ED 15:28
DX: Z34.93 Encounter for supervision of normal pregnancy, unspecified, third trimester (principal); Z87.891 Personal history of nicotine dependence
CPT/HCPCS: 93005; 99283

== ENCOUNTER 2017-09-02 06:07 | Inpatient (IN) | payer MEDICARE, MEDICAID ==
[2017-09-02 06:27] LABS: Hematocrit 34 % (35-47); Hemoglobin 10.9 g/dl (12.0-16.0); Mean Corpuscular HGB Conc 32 g/dl (31-36); Mean Corpuscular Hemoglobin 24 pg (27-31); Mean Corpuscular Volume 74 fL (80-97); Mean Platelet Volume 9 um3 (7.4-10.4); Red Blood Count 4.61 10^6/ul (4.0-5.4); Red Cell Distribution Width 19 % (10.5-15); White Blood Count 7.3 10^3/ul (3.5-10.8)
[2017-09-02] MEDS ORDERED: Penicillin G Potassium IV* 5 MILLION.UNITS VIAL ONE (06:27)
[2017-09-02] MEDS ORDERED: Oxytocin in LR* 40 UNITS/2,000 ML BAG IVPB ONE (06:30)
[2017-09-02 06:33] LABS: Comments Flag Yes
[2017-09-02] MEDS ORDERED: Glycerin ADULT SUPP PR PRN (06:40)
[2017-09-02] MEDS ORDERED: Measles, Mumps,Rubella VACC* 0.5 ML/VIAL SUBCUT ONE (06:40)
[2017-09-02] MEDS ORDERED: Witch Hazel PAD* JAR TOPICAL PRN (06:40)
[2017-09-02] MEDS ORDERED: Dibucaine 1% 28.35 GM TUBE PR PRN (06:40)
[2017-09-02] MEDS ORDERED: Oxytocin in LR* 20 UNITS/1,000 ML BAG IVPB SCH (07:00)
[2017-09-02] MEDS ORDERED: Simethicone TAB* 80 MG TAB.CHEW PO SCH (08:30)
[2017-09-02] MEDS: Docusate CAP* 100 MG PO SCH ×3 (10:00→19:44)
[2017-09-02] MEDS: Ibuprofen TAB* 600 MG PO PRN ×2 (10:01→15:45)
[2017-09-02] MEDS ORDERED: Famotidine TAB* 20 MG ONE (14:57)
[2017-09-02] MEDS: Metoclopramide TAB* 10 MG PO PRN (15:45)
[2017-09-02] MEDS: Acetaminophen TAB* 325 MG PO PRN (19:44)
[2017-09-02] MEDS: Famotidine TAB* 20 MG PO SCH (19:44)
[2017-09-03] MEDS: Ibuprofen TAB* 600 MG PO PRN ×4 (00:28→20:00)
[2017-09-03] MEDS: Acetaminophen TAB* 325 MG PO PRN ×2 (03:54→10:54)
[2017-09-03 08:53] LABS: Hematocrit 28 % (35-47); Hemoglobin 9.1 g/dl (12.0-16.0); Mean Corpuscular HGB Conc 33 g/dl (31-36); Mean Corpuscular Hemoglobin 24 pg (27-31); Mean Platelet Volume 9 um3 (7.4-10.4); Red Blood Count 3.76 10^6/ul (4.0-5.4); Red Cell Distribution Width 18 % (10.5-15); White Blood Count 10.6 10^3/ul (3.5-10.8)
[2017-09-03 08:58] LABS: Comments Flag Yes; Mean Corpuscular Volume 74 fL (80-97)
[2017-09-03] MEDS: Ferrous Gluconate TAB* 324 MG TAB PO SCH ×2 (09:11→20:01)
[2017-09-03] MEDS: Metoclopramide TAB* 10 MG PO PRN (09:11)
[2017-09-03] MEDS: Famotidine TAB* 20 MG PO SCH ×2 (09:11→22:40)
[2017-09-03] MEDS: Docusate CAP* 100 MG PO SCH ×3 (09:11→20:00)
[2017-09-03] MEDS ORDERED: Tetan/Diph/Pertus SYR(Tdap)* 0.5 ML SYR(BOOSTRIX) use SYR IM ONE (10:13)
[2017-09-04] MEDS: Metoclopramide TAB* 10 MG PO PRN (05:42)
[2017-09-04 07:57] VITALS: BP 121/72
[2017-09-04] MEDS: Famotidine TAB* 20 MG PO SCH (09:25)
[2017-09-04] MEDS: Docusate CAP* 100 MG PO SCH (09:26)
[2017-09-04] MEDS: Ferrous Gluconate TAB* 324 MG TAB PO SCH (09:27)
== END 2017-09-04 11:00 | disposition home or self-care (01) | DRG 774 ==
LOC: MCHOB 06:07
PROVIDERS: ADMIT Obstetrics & Gynecology; ATTEND Obstetrics & Gynecology
PROC: 10E0XZZ Delivery of Products of Conception, External Approach (ICD-10-PCS; principal; 2017-09-02)
PROC: 10907ZC Drainage of Amniotic Fluid, Therapeutic from Products of Conception, Via Natural or Artificial Opening (ICD-10-PCS; 2017-09-02)
DX: O99.824 Streptococcus B carrier state complicating childbirth (principal); O10.92 Unspecified pre-existing hypertension complicating childbirth; O99.344 Other mental disorders complicating childbirth; F31.9 Bipolar disorder, unspecified; Z3A.39 39 weeks gestation of pregnancy; Z37.0 Single live birth
CPT/HCPCS: 36415; 85025; 85027; 86850; 86900; 86901; 90707; 90715; A9270-GY; J2540

== ENCOUNTER 2017-12-29 06:30 | Emergency (ER) | payer MEDICARE, MEDICAID ==
[2017-12-29] MEDS ORDERED: diPHENhydraMINE IV* 50 MG/ML 1 ml VIAL (BENADRYL) IV ONE (07:34)
[2017-12-29] MEDS ORDERED: NS 0.9% 1000 ML* 1,000 ML IV ONE (07:34)
[2017-12-29] MEDS ORDERED: Metoclopramide IV* 5 MG/ML 2 ML VIAL IV SLOW PU ONE (07:34)
[2017-12-29 08:07] LABS: Hematocrit 39 % (35-47); Hemoglobin 12.8 g/dl (12.0-16.0); Mean Corpuscular HGB Conc 33 g/dl (31-36); Mean Corpuscular Hemoglobin 24 pg (27-31); Mean Corpuscular Volume 72 fL (80-97); Mean Platelet Volume 8.3 um3 (7.4-10.4); Platelet Count 279 10^3/ul (150-450); Red Blood Count 5.39 10^6/ul (4.0-5.4); Red Cell Distribution Width 17 % (10.5-15); White Blood Count 10.3 10^3/ul (3.5-10.8)
[2017-12-29 08:18] LABS: EGFR Non-African American 102.3 (>60)
[2017-12-29] MEDS ORDERED: Ketorolac INJ* 30 MG/ML 1 ML VIAL IV PUSH ONE (08:36)
[2017-12-29] MEDS ORDERED: Magnesium Sulfate 2 GM IV* 2 GM/50 ML BAG IVPB ONE (08:36)
[2017-12-29] MEDS ORDERED: Dexamethasone IV* 4 MG/ML 1 ML (4 MG) IV SLOW PU ONE (08:36)
--- NOTE | 2017-12-29 09:01 | RAD ---
HISTORY: Severe headache COMPARISONS: September 25, 2014 TECHNIQUE: Multiple contiguous axial CT scans were obtained of the head without intravenous contrast. FINDINGS: HEMORRHAGE/INFARCT: There is no hemorrhage or acute infarct. MASSES/SHIFT: There is no mass or shift. EXTRA-AXIAL SPACES: There are no extra-axial fluid collections. SULCI AND VENTRICLES: The sulci and ventricles are normal in size and position for the patient's stated age. CEREBRUM: There are no focal parenchymal abnormalities. BRAINSTEM: There are no focal parenchymal abnormalities. CEREBELLUM: There are no focal parenchymal abnormalities. VESSELS: The vessels are grossly normal. PARANASAL SINUSES: The paranasal sinuses are clear. ORBITS: The orbits are unremarkable. BONES AND SOFT TISSUE: No bone or soft tissue abnormalities are noted. OTHER: None IMPRESSION: NO ACUTE INTRACRANIAL PATHOLOGY.
[2017-12-29 10:08] VITALS: BP 120/78
--- NOTE | 2018-01-12 14:49 | ED ---
Robert Roberts Stephanie, scribed for Foreign Garcia MD on 12/29/17 at 0750 . Headache - HPI Summary HPI Summary: The pt is a 27 y/o F presenting to the ED with c/o migraine that began on . Symptoms include nausea and diarrhea that began on 12/29/47. Her migraine is located primary in the frontal region of the head. She denies pain in the occipital region of the head, back of the neck, fever, dysuria, hematuria, cough , congestion, chills and diaphoresis. She describes her SANCHEZ as feeling like she was hit in the head with a ton of bricks. Her pain is described as a 10 in severity. She has hx of migraines and has been hospitalized for migraine treatment before. - History Of Current Complaint Chief Complaint: EDHeadache Stated Complaint: HEADACHE Time Seen by Provider: 12/29/17 07:25 Hx Obtained From: Patient Hx Last Menstrual Period: 8 months ago - Onset/Duration: Sudden Onset, Started days ago - 2, Still Present Currently Pain Is: Current Pain Scale(0-10)= - 10 Timing: Constant Character: Migraine Location of Headache: Frontal Aggravating Factor: Nothing Allevating Factors: Nothing Associated Signs And Symptoms: Nausea - Allergies/Home Medications Allergies/Adverse Reactions: Allergies Allergy/AdvReac Type Severity Reaction Status Date / Time No Known Allergies Allergy Verified 12/29/17 06:34 Home Medications: Home Medications NK [No Home Medications Reported] 12/29/17 [History Confirmed 12/29/17] PMH/Surg Hx/FS Hx/Imm Hx Endocrine/Hematology History: Denies: Hx Anticoagulant Therapy, Hx Blood Disorders, Hx Diabetes, Hx Thyroid Disease Cardiovascular History: Denies: Hx Hypertension, Hx Pacemaker/ICD Respiratory History: Reports: Hx Asthma - inhaler prn for exercise induced asthma Denies: Hx Chronic Bronchitis, Hx Chronic Obstructive Pulmonary Disease (COPD ), Hx Cystic Fibrosis, Hx Lung Cancer, Hx Pleural Effusion, Hx Pneumonia, Hx Pulmonary Edema, Hx Pulmonary Embolism, Hx Seasonal Allergies, Hx Sleep Apnea, Other Respiratory Problems/Disorders GI History: Reports: Hx Irritable Bowel, Other GI Disorders - colitis Denies: Hx Cirrhosis, Hx Crohn's Disease, Hx Diverticulosis, Hx Gall Bladder Disease, Hx Gastroesophageal Reflux Disease, Hx Gastrointestinal Bleed, Hx Hiatal Hernia, Hx Jaundice, Hx Obstructive Bowel, Hx Ileostomy, Hx Pyloric Stenosis, Hx Ulcer History: Reports: Hx Kidney Infection - Polycystic kidney, Hx Kidney Stones - Sep 2014 Denies: Hx Acute Renal Failure, Hx Benign Prostatic Hyperplasia, Hx Chronic Renal Failure, Hx Dialysis, Hx Renal Disease, Other Problems/Disorders Musculoskeletal History: Reports: Hx Back Problems Denies: Hx Arthritis, Hx Bursitis, Hx Congenital Bone Abnormalities, Hx Fibromyalgia, Hx Gout, Hx Orthopedic Injury, Hx Osteoporosis, Hx Scoliosis, Hx Tendonitis, Other Musculoskeletal History Sensory History: Denies: Hx Cataracts, Hx Contacts or Glasses, Hx Eye Injury, Hx Eye Prosthesis, Hx Glaucoma, Hx Legally Blind, Hx Macular Degeneration, Hx Vision Problem, Hx Deafness, Hx Hearing Aid, Hx Hearing Problem, Other Sensory Impairments Opthamlomology History: Denies: Hx Cataracts, Hx Contacts or Glasses, Hx Eye Injury, Hx Eye Prosthesis, Hx Glaucoma, Hx Legally Blind, Hx Macular Degeneration, Hx Vision Problem, Other Sensory Impairments Neurological History: Reports: Hx Headaches, Hx Migraine - 3 x week Denies: Hx Dementia, Hx Developmental Delay, Hx Seizures, Hx Spinal Cord Injury, Hx Transient Ischemic Attacks (TIA), Other Neuro Impairments/Disorders Psychiatric History: Reports: Hx Anxiety, Hx Depression, Hx Post Traumatic Stress Disorder, Hx Inpatient Treatment, Hx Community Mental Health Tx, Hx Suicide Attempt - overdose attempt at 12 Denies: Hx Attention Deficit Hyperactivity Disorder, Hx Eating Disorder, Hx Panic Disorder, Hx Schizophrenia, Hx Bipolar Disorder, Hx of Violent Episodes Against Others, Hx Substance Abuse, Other Psychiatric Issues/Disorders - Surgical History Surgery Procedure, Year, and Place: HISTORY OF ULCERATIVE COLITIS, IBS, KIDNEY STONES - Immunization History Date of Tetanus Vaccine: Unknown Date of Influenza Vaccine: None Infectious Disease History: No Infectious Disease History: Denies: Hx Clostridium Difficile, Hx Hepatitis, Hx Human Immunodeficiency Virus (HIV), Hx of Known/Suspected MRSA, Hx Shingles, Hx Tuberculosis, Traveled Outside the [place] in Last 30 Days - Family History Known Family History: Positive: Cardiac Disease, Diabetes - Social History Occupation: Unemployed Lives: Alone Alcohol Use: None Hx Substance Use: No Substance Use Type: Reports: None Substance Use Comment - Amount & Last Used: stated smoked several weeks ago prior to knowledge of for nausea Hx Tobacco Use: Yes Smoking Status (MU): Former Smoker Amount Used/How Often: 3/4 ppd Length of Time of Smoking/Using Tobacco: 6 YRS Have You Smoked in the Last Year: No Review of Systems Negative: Fever, Chills, Skin Diaphoresis Negative: Erythema ENT: Negative - nasal congestion Negative: Sore Throat Negative: Chest Pain Negative: Shortness Of Breath, Cough Negative: Abdominal Pain, Vomiting, Nausea Negative: dysuria, hematuria Musculoskeletal: Negative - pain in occipital region of head and posterior neck Negative: Myalgia, Edema Negative: Rash Neurological: Negative - dizziness All Other Systems Reviewed And Are Negative: Yes Physical Exam - Summary Physical Exam Summary: Constitutional: Well-developed, Well-nourished, Alert. (-) Distressed Skin: Warm, Dry HENT: Normocephalic; Atraumatic, there is mild tenderness to percussion L frontal Eyes: Conjunctiva normal, photophobic Neck: Musculoskeletal ROM normal neck. (-) JVD, (-) Stridor, (-) Tracheal deviation Cardio: Rhythm regular, rate normal, Heart sounds normal; Intact distal pulses; The pedal pulses are 2+ and symmetric. Radial pulses are 2+ and symmetric. (-) Murmur Pulmonary/Chest wall: Effort normal. (-) Respiratory distress, (-) Wheezes, (-) Rales Abd: Soft, (-) Tenderness, (-) Distension, (-) Guarding, (-) Rebound Musculoskeletal: (-) Edema Lymph: (-) Cervical adenopathy Neuro: Alert, Oriented x3, No nuchal rigidity Psych: Mood and affect Normal Triage Information Reviewed: Yes Vital Signs On Initial Exam: Initial Vitals Temp Pulse Resp BP Pulse Ox 97.4 F 91 16 113/83 98 12/29/17 06:31 12/29/17 06:31 18 06:31 18 06:31 12/29/17 06:31 Vital Signs Reviewed: Yes Diagnostics - Vital Signs Vital Signs Temp Pulse Resp BP Pulse Ox 12/29/17 06:31 97.4 F 91 16 113/83 98 - Laboratory Result Diagrams: 12/29/17 07:45 12/29/17 07:45 Lab Statement: Any lab studies that have been ordered have been reviewed, and results considered in the medical decision making process. - CT Brain CT Interpretation: No Acute Changes CT Interpretation Completed By: Radiologist - No acute intracranial pathology. ED physician has reviewed this report. Re-Evaluation - Re-Evaluation First Eval Re-Evaluation Time: 09:52 Change: Improved - The pt states her SANCHEZ is resolved. Headache Course/Dx - Course Course Of Treatment: Given past presentations and description of location of SANCHEZ , ED physicians suspicion for subarachnoid hemorrhage is quite low. ED physician adviced the pt to take Motrin or Alieve when needed at home. - Diagnoses Provider Diagnoses: Migraine Discharge - Sign-Out/Discharge Documenting (check all that apply): Discharge - Discharge Plan Condition: Stable Disposition: HOME Patient Education Materials: Migraine Headache (ED) Referrals: Laith Mckinnon MD [Primary Care Provider] - 2 Days Additional Instructions: Take Motrin or Alieve when needed at home. RETURN TO THE EMERGENCY DEPARTMENT FOR CHANGING OR WORSENING SYMPTOMS The documentation as recorded by the Robert julien Stephanie accurately reflects the service I personally performed and the decisions made by , Foreign Garcia MD.
== END 2017-12-29 10:07 | disposition home or self-care (01) ==
LOC: ED 06:30
DX: G43.909 Migraine, unspecified, not intractable, without status migrainosus (principal); R11.0 Nausea; Z87.891 Personal history of nicotine dependence
CPT/HCPCS: 36415; 70450; 80048; 84702; 85027; 96374; 96375; 99283; J1100; J1200; J1885; J2765; J3475